=== PATIENT | female | born 1990 | race Caucasian/White ===

== ENCOUNTER 2016-07-02 05:57 | Emergency (ER) | payer OTHER ==
[2016-07-02 06:15] VITALS: RESP 16
[2016-07-02] MEDS ORDERED: SODIUM CHLORIDE 0.9% 1,000 ML IV STA (07:18)
[2016-07-02] MEDS ORDERED: SODIUM CHLORIDE 0.9% 500 ML IV STA (07:18)
[2016-07-02 07:37] LABS: Basophils % (A) 1 %; CHCM 34.4; Eosinophils # (A) 0.1 k/uL (0-0.7); Eosinophils % (A) 2 %; HCT 39.4 % (34.0-46.0); HDW 2.75; HGB 12.9 gm/dL (11.4-16.0); Luc # (Auto) 0.07; Luc % (Auto) 1; Lymphocytes # (A) 1.2 k/uL (1.0-4.8); Lymphocytes % (A) 20 %; MCH 28.7 pg (25.0-35.0); MCHC 32.7 g/dL (31.0-37.0); MCV 87.7 fL (80.0-100.0); Mean Platelet Volume 7.7; Monocytes # (A) 0.5 k/uL (0-1.0); Monocytes % (A) 8 %; Neutrophils # (A) 4.2 k/uL (1.3-7.7); Neutrophils % (A) 69 %; RBC 4.49 m/uL (3.80-5.40); RDW 12.7 % (11.5-15.5); WBC 6.1 k/uL (3.8-10.6); WBC (Perox) 6.21
--- NOTE | 2016-07-02 07:37 | ED ---
Syncope HPI - General Chief Complaint: Syncope Stated Complaint: Syncope/Fall/Seizure Time Seen by Provider: 07/02/16 07:05 Source: patient Mode of arrival: EMS Limitations: no limitations - History of Present Illness Initial Comments: Past about 4 AM today she woke up about the same time to check on her child on her way back to the bed she passed out. Her head than her boyfriend noticed that she had a seizure which didn't last quite as long he was less than a minute and then now she was bit disoriented wasn't quite with it took her about 15-20 minutes to get back to her baseline. Eyes any laceration or any neck pain from the fall no other injuries to the upper or lower extremities for the fall. She has no history of seizure disorder with what in the family. She does have a history of syncope last time was 4 years ago then Neurontin] she had other episodes of syncope as well. She feels tired now mild headache no neck pain no chest pain no neck stiffness no shortness of breath no abdominal pain no frequency urgency dysuria - Related Data Previous Rx's Medication Instructions Recorded Nitrofurantoin Monohyd/M-Cryst 100 mg PO Q12HR #14 cap 07/02/16 [Macrobid] Allergies Allergy/AdvReac Type Severity Reaction Status Date / Time No Known Allergies Allergy Verified 07/02/16 07:37 Review of Systems ROS Statement: Those systems with pertinent positive or pertinent negative responses have been documented in the HPI. ROS Other: All systems not noted in ROS Statement are negative. Past Medical History Past Medical History: No Reported History Additional Past Medical History / Comment(s): GALLBLADDER DISORDER, blackouts History of Any Multi-Drug Resistant Organisms: None Reported Past Surgical History: Section Additional Past Surgical History / Comment(s): brent removed, Past Anesthesia/Blood Transfusion Reactions: No Reported Reaction Past Psychological History: No Psychological Hx Reported Smoking Status: Never smoker Past Alcohol Use History: None Reported Past Drug Use History: None Reported - Past Family History Mother Family Medical History: No Reported History General Exam - General Exam Comments Initial Comments: General: The patient is awake and alert, in no distress, and does not appear acutely ill. Skin: Skin is warm and dry and no rashes or lesions are noted. Eye: Pupils are equal, round and reactive to light, extra-ocular movements are intact; there is normal conjunctiva bilaterally. Ears, nose, mouth and throat: There are moist mucous membranes and no oral lesions. Neck: The neck is supple, there is no tenderness or signs of meningitis Cardiovascular: There is a regular rate and rhythm. No murmur, rub or gallop is appreciated. Respiratory: To auscultation bilateral, no wheezing no rhonchi no distress respiratory gibson noticed Gastrointestinal: Soft, non-distended, non-tender abdomen without masses or organomegaly noted. There is no rebound or guarding present. Bowel sounds are unremarkable. Back: There is no tenderness to palpation in the midline. There is no obvious deformity. Musculoskeletal: Normal ROM, no tenderness, There is no pedal edema. There is no calf tenderness or swelling. No cords were appreciated. Neurological: CN II-XII intact, Cranial nerves III through XII are intact. There are no obvious motor or sensory deficits. Coordination appears grossly intact. Speech is normal. Psychiatric: Cooperative, appropriate mood & affect, normal judgment. Limitations: no limitations Course Vital Signs 07/02/16 07/02/16 06:12 07:28 Temperature 97.8 F Pulse Rate 18 L Pulse Rate [ 73 Sitting] Pulse Rate [ 89 Standing] Pulse Rate [ 66 Supine] Respiratory 16 Rate Blood Pressure 112/66 Blood Pressure 104/65 [Sitting] Blood Pressure 106/69 [Standing] Blood Pressure 96/57 [Supine] O2 Sat by Pulse 99 Oximetry Spoke to Debbie Torrez he agrees to see her next week as outpatient and he will arrange EEG in the meantime he is advised not to drive in the meantime EKG Findings - EKG Comments: EKG Findings:: R great is so 67 is normal sinus rhythm GA interval is 146 QRS duration is 82 QT/QTc is 394/416 review of this EKG does have some artifact and not mostly ambulates no ST elevation or ST depression noticed this EKG Medical Decision Making - Lab Data Result diagrams: 07/02/16 06:27 07/02/16 06:27 Lab Results 07/02/16 07/02/16 07/02/16 Range/Units 06:27 06:27 06:27 WBC 6.1 (3.8-10.6) k/uL RBC 4.49 (3.80-5.40) m/uL Hgb 12.9 (11.4-16.0) gm/dL Hct 39.4 (34.0-46.0) % MCV 87.7 (80.0-100.0) fL MCH 28.7 (25.0-35.0) pg MCHC 32.7 (31.0-37.0) g/dL RDW 12.7 (11.5-15.5) % Plt Count 244 (150-450) k/uL Neutrophils % 69 % Lymphocytes % 20 % Monocytes % 8 % Eosinophils % 2 % Basophils % 1 % Neutrophils # 4.2 (1.3-7.7) k/uL Lymphocytes # 1.2 (1.0-4.8) k/uL Monocytes # 0.5 (0-1.0) k/uL Eosinophils # 0.1 (0-0.7) k/uL Basophils # 0.0 (0-0.2) k/uL PT (9.0-12.0) sec INR (<1.1) APTT (22.0-30.0) sec Sodium 142 (137-145) mmol/L Potassium 4.0 (3.5-5.1) mmol/L Chloride 106 (98-107) mmol/L Carbon Dioxide 25 (22-30) mmol/L Anion Gap 11 mmol/L BUN 12 (7-17) mg/dL Creatinine 0.61 (0.52-1.04) mg/dL Est GFR (MDRD) Af Amer >60 (>60 ml/min/1.73 sqM) Est GFR (MDRD) Non-Af >60 (>60 ml/min/1.73 sqM) Glucose 82 (74-99) mg/dL Calcium 9.2 (8.4-10.2) mg/dL Total Bilirubin 0.6 (0.2-1.3) mg/dL AST 19 (14-36) U/L ALT 26 (9-52) U/L Alkaline Phosphatase 57 (38-126) U/L Total Creatine Kinase 96 (30-135) U/L CK-MB (CK-2) 0.7 (0.0-2.4) ng/mL CK-MB (CK-2) Rel Index 0.7 Troponin I <0.012 (0.000-0.034) ng/mL Total Protein 7.1 (6.3-8.2) g/dL Albumin 4.3 (3.5-5.0) g/dL Urine Color Urine Appearance (Clear) Urine pH (5.0-8.0) Ur Specific [place] (1.001-1.035) Urine Protein (Negative) Urine Glucose (UA) (Negative) Urine Ketones (Negative) Urine Blood (Negative) Urine Nitrate (Negative) Urine Bilirubin (Negative) Urine Urobilinogen (<2.0) mg/dL Ur Leukocyte Esterase (Negative) Urine RBC (0-5) /hpf Urine WBC (0-5) /hpf Ur Squamous Epith Cells (0-4) /hpf Urine Bacteria (None) /hpf Urine Mucus (None) /hpf Urine HCG, Qual (Not Detectd) 07/02/16 07/02/16 07/02/16 Range/Units 06:27 08:00 08:00 WBC (3.8-10.6) k/uL RBC (3.80-5.40) m/uL Hgb (11.4-16.0) gm/dL Hct (34.0-46.0) % MCV (80.0-100.0) fL MCH (25.0-35.0) pg MCHC (31.0-37.0) g/dL RDW (11.5-15.5) % Plt Count (150-450) k/uL Neutrophils % % Lymphocytes % % Monocytes % % Eosinophils % % Basophils % % Neutrophils # (1.3-7.7) k/uL Lymphocytes # (1.0-4.8) k/uL Monocytes # (0-1.0) k/uL Eosinophils # (0-0.7) k/uL Basophils # (0-0.2) k/uL PT 11.4 (9.0-12.0) sec INR 1.1 (<1.1) APTT 25.2 (22.0-30.0) sec Sodium (137-145) mmol/L Potassium (3.5-5.1) mmol/L Chloride (98-107) mmol/L Carbon Dioxide (22-30) mmol/L Anion Gap mmol/L BUN (7-17) mg/dL Creatinine (0.52-1.04) mg/dL Est GFR (MDRD) Af Amer (>60 ml/min/1.73 sqM) Est GFR (MDRD) Non-Af (>60 ml/min/1.73 sqM) Glucose (74-99) mg/dL Calcium (8.4-10.2) mg/dL Total Bilirubin (0.2-1.3) mg/dL AST (14-36) U/L ALT (9-52) U/L Alkaline Phosphatase (38-126) U/L Total Creatine Kinase (30-135) U/L CK-MB (CK-2) (0.0-2.4) ng/mL CK-MB (CK-2) Rel Index Troponin I (0.000-0.034) ng/mL Total Protein (6.3-8.2) g/dL Albumin (3.5-5.0) g/dL Urine Color Yellow Urine Appearance Cloudy H (Clear) Urine pH 6.5 (5.0-8.0) Ur Specific [place] 1.017 (1.001-1.035) Urine Protein Trace H (Negative) Urine Glucose (UA) Negative (Negative) Urine Ketones 1+ H (Negative) Urine Blood Negative (Negative) Urine Nitrate Negative (Negative) Urine Bilirubin Negative (Negative) Urine Urobilinogen <2.0 (<2.0) mg/dL Ur Leukocyte Esterase Moderate H (Negative) Urine RBC 1 (0-5) /hpf Urine WBC 20 H (0-5) /hpf Ur Squamous Epith Cells 6 H (0-4) /hpf Urine Bacteria Rare H (None) /hpf Urine Mucus Occasional H (None) /hpf Urine HCG, Qual Not Detected (Not Detectd) Disposition Clinical Impression: Syncope, Seizure disorder, Head injury, UTI (urinary tract infection) Disposition: HOME SELF-CARE Condition: Good Instructions: Epilepsy (ED) Prescriptions: Nitrofurantoin Monohyd/M-Cryst [Macrobid] 100 mg PO Q12HR #14 cap Referrals: None,Stated [Primary Care Provider] - 1-2 days Candis Vines MD [STAFF PHYSICIAN] - 1-2 days
[2016-07-02 07:45] LABS: ALT 26 U/L (9-52); AST 19 U/L (14-36); Alkaline Phosphatase 57 U/L (38-126); Anion Gap 11 mmol/L; Blood Urea Nitrogen 12 mg/dL (7-17); Calcium 9.2 mg/dL (8.4-10.2); Carbon Dioxide 25 mmol/L (22-30); Chloride 106 mmol/L (98-107); Glucose 82 mg/dL (74-99); Non-African American GFR(MDRD) >60 (>60 ml/min/1.73 sqM); Sodium 142 mmol/L (137-145); Total Bilirubin 0.6 mg/dL (0.2-1.3); Total Protein 7.1 g/dL (6.3-8.2)
[2016-07-02 08:00] LABS: Creatine Kinase 96 U/L (30-135)
[2016-07-02 08:03] LABS: INR 1.1 (<1.1); Partial Thromboplastin Time 25.2 sec (22.0-30.0); Prothrombin Time 11.4 sec (9.0-12.0)
[2016-07-02 08:12] LABS: Creatine Kinase MB 0.7 ng/mL (0.0-2.4); Troponin I <0.012 ng/mL (0.000-0.034)
[2016-07-02 08:29] LABS: Appearance,Urine Cloudy (Clear); Bacteria,Urine Rare /hpf; Bilirubin,Urine Negative (Negative); Glucose,Urine (UA) Negative (Negative); Ketones,Urine 1+ (Negative); Leukocyte Esterase,Urine Moderate (Negative); Mucus,Urine Occasional /hpf; Nitrite,Urine Negative (Negative); PH, Urine 6.5 (5.0-8.0); Particle Count 4467; Protein,Urine Trace (Negative); RBC,Urine 1 /hpf (0-5); Specific Gravity,Urine 1.017 (1.001-1.035); Squamous Epithelial Cell,Urine 6 /hpf (0-4); UA Billing (MACRO vs. MICRO) MICRO; Urobilinogen,Urine <2.0 mg/dL (<2.0); WBC,Urine 20 /hpf (0-5)
--- NOTE | 2016-07-02 09:06 | CT ---
EXAMINATION TYPE: CT brain wo con DATE OF EXAM: 07/02/2016 8:55 AM COMPARISON: NONE INDICATION: Syncope with seizure DLP: 943.80 mGycm, Automated exposure control for dose reduction was used. CONTRAST: None CT of the brain is performed utilizing 3 mm thick sections through the posterior fossa and 3 mm thick sections through the remaining calvarium. Study is performed within 24 hours of arrival to the hosp [facility]. No abnormal hyperdensity is present to suggest an acute intracranial hemorrhage. No mass lesion is evident. No acute infarcts are evident. Ventricles and sulci are appropriate for the patient age. Paranasal sinuses and mastoid air cells within the [id number] are clear. IMPRESSIONS: 1. Normal CT Brain
--- NOTE | 2016-07-02 09:22 | XR ---
EXAMINATION TYPE: XR chest 2V DATE OF EXAM: 07/02/2016 9:02 AM COMPARISON: NONE HISTORY: Seizure and syncope. TECHNIQUE: Frontal and lateral views of the chest are obtained. FINDINGS: There is no focal air space opacity, pleural effusion, or pneumothorax seen. The cardiac silhouette size is within normal limits. The osseous structures are intact. Cholecystectomy clips a re noted. IMPRESSION: No acute cardiopulmonary process.
[2016-07-02 10:14] VITALS: BP 97/58; PULSE 84; TEMP 98.4
== END 2016-07-02 10:02 | disposition home or self-care (01) ==
LOC: EC 05:57
DX: R55 Syncope and collapse (principal); R56.9 Unspecified convulsions; S09.90XA Unspecified injury of head, initial encounter; N39.0 Urinary tract infection, site not specified; W18.30XA Fall on same level, unspecified, initial encounter; Y92.009 Unspecified place in unspecified non-institutional (private) residence as the place of occurrence of the external cause
CPT/HCPCS: 36415; 70450; 71020; 80053; 81001; 81025; 82550; 82553; 84484; 85025; 85610; 85730; 93005; 96360; 96361; 99284

== ENCOUNTER 2018-04-09 09:26 | Emergency (ER) | payer OTHER ==
[2018-04-09 09:30] VITALS: RESP 18
[2018-04-09] MEDS ORDERED: SODIUM CHLORIDE 0.9% 500 ML 500 ML IV STA (09:36)
[2018-04-09] MEDS ORDERED: DIPH,PERTUS(ACELL)TETVAC-LF 0.5 ML VIAL IM ONE (09:45)
[2018-04-09] MEDS ORDERED: LIDOCAINE/EPINEPHR/TETRACAINE 5 ML BOTTLE TOPICAL ONE (09:47)
[2018-04-09] MEDS ORDERED: TOPICAL SKIN ADHESIVE 1 EACH AMP TOPICAL ONE (09:47)
[2018-04-09] MEDS ORDERED: SODIUM CHLORIDE 0.9% 1,000 ML IV ONE (09:48)
--- NOTE | 2018-04-09 09:48 | ED ---
Syncope HPI - General Chief Complaint: Syncope Stated Complaint: Syncope/facial injury Time Seen by Provider: 04/09/18 09:36 Source: patient, family, RN notes reviewed Mode of arrival: wheelchair Limitations: no limitations - History of Present Illness Initial Comments: This a 27-year-old female presents emergency Department chief complaint of syncope. Patient states that she had a syncopal episode while on the toilet this morning. Patient states she has not felt well all might she's been having extreme nausea. Patient states that she felt very lightheaded, flushed feeling and states that she passed out falling forward. Patient does have superficial laceration to her lip and nose. She is unsure when her last tetanus was. Patient went of headache, neck pain. Patient states she's been evaluated for these syncopal episodes in the past with no acute findings. Patient states that she's had MRIs, cardiology evaluation. Patient denies any chest pain, shortness breath, back pain, extremity injury. She states her father gave her some nausea medication which has helped. - Related Data Home Medications Medication Instructions Recorded Confirmed No Known Home Medications 04/09/18 04/09/18 Allergies Allergy/AdvReac Type Severity Reaction Status Date / Time No Known Allergies Allergy Verified 04/09/18 09:30 Review of Systems ROS Statement: Those systems with pertinent positive or pertinent negative responses have been documented in the HPI. ROS Other: All systems not noted in ROS Statement are negative. Past Medical History Past Medical History: No Reported History Additional Past Medical History / Comment(s): GALLBLADDER DISORDER, blackouts History of Any Multi-Drug Resistant Organisms: None Reported Past Surgical History: Section Additional Past Surgical History / Comment(s): brent removed, Past Anesthesia/Blood Transfusion Reactions: No Reported Reaction Past Psychological History: No Psychological Hx Reported Smoking Status: Never smoker Past Alcohol Use History: None Reported Past Drug Use History: None Reported - Past Family History Mother Family Medical History: No Reported History General Exam Limitations: no limitations General appearance: alert, in no apparent distress Head exam: Present: atraumatic, normocephalic, normal inspection Eye exam: Present: normal appearance, PERRL, EOMI. Absent: scleral icterus, conjunctival injection, periorbital swelling ENT exam: Present: mucous membranes moist. Absent: normal exam (Superficial abrasion noted to the nasal bridge, irregular 1 semi-laceration to the upper lip region above the vermilion border) Neck exam: Present: normal inspection, tenderness. Absent: meningismus, full ROM (Patient in c-collar), lymphadenopathy Respiratory exam: Present: normal lung sounds bilaterally. Absent: respiratory distress, wheezes, rales, rhonchi, stridor Cardiovascular Exam: Present: regular rate, normal rhythm, normal heart sounds. Absent: systolic murmur, diastolic murmur, rubs, gallop, clicks Extremities exam: Present: normal inspection, full ROM, normal capillary refill. Absent: tenderness, pedal edema, joint swelling, calf tenderness Neurological exam: Present: alert, oriented X3, CN II-XII intact, reflexes normal. Absent: motor sensory deficit Course Vital Signs 04/09/18 09:27 Temperature 98.3 F Pulse Rate 79 Respiratory 18 Rate Blood Pressure 104/67 O2 Sat by Pulse 98 Oximetry EKG Findings - EKG Comments: EKG Findings:: EKG performed at 10:15 normal sinus rhythm with rate of 87 MS 1: 30 QRS 76 QT/QTC 358/4:30 Procedures - Procedures Initial comment: 1 cm lip laceration was cleaned with normal saline let solution applied prior to closure with exofin topical adhesive. Patient tolerated well no complications Medical Decision Making - Medical Decision Making 27-year-old female presents emergency from for syncopal episode. Patient has had syncopal episodes in the past consistent with this. Patient is found to be dehydrated secondary to her ongoing nausea that developed overnight. Patient was hydrated, she feels improved. Patient did have lab work, CT, EKG all unremarkable. Return parameters discussed. Patient's laceration was closed. - Lab Data Result diagrams: 04/09/18 10:08 04/09/18 10:08 Lab Results 04/09/18 04/09/18 04/09/18 Range/Units 09:52 09:52 10:08 WBC 7.4 (3.8-10.6) k/uL RBC 4.76 (3.80-5.40) m/uL Hgb 14.0 (11.4-16.0) gm/dL Hct 42.3 (34.0-46.0) % MCV 88.9 (80.0-100.0) fL MCH 29.4 (25.0-35.0) pg MCHC 33.1 (31.0-37.0) g/dL RDW 12.7 (11.5-15.5) % Plt Count 226 (150-450) k/uL Neutrophils % 87 % Lymphocytes % 6 % Monocytes % 5 % Eosinophils % 1 % Basophils % 0 % Neutrophils # 6.4 (1.3-7.7) k/uL Lymphocytes # 0.4 L (1.0-4.8) k/uL Monocytes # 0.4 (0-1.0) k/uL Eosinophils # 0.1 (0-0.7) k/uL Basophils # 0.0 (0-0.2) k/uL Sodium (137-145) mmol/L Potassium (3.5-5.1) mmol/L Chloride (98-107) mmol/L Carbon Dioxide (22-30) mmol/L Anion Gap mmol/L BUN (7-17) mg/dL Creatinine (0.52-1.04) mg/dL Est GFR (CKD-EPI)AfAm (>60 ml/min/1.73 sqM) Est GFR (CKD-EPI)NonAf (>60 ml/min/1.73 sqM) Glucose (74-99) mg/dL Calcium (8.4-10.2) mg/dL Magnesium (1.6-2.3) mg/dL Total Bilirubin (0.2-1.3) mg/dL AST (14-36) U/L ALT (9-52) U/L Alkaline Phosphatase (38-126) U/L Troponin I (0.000-0.034) ng/mL Total Protein (6.3-8.2) g/dL Albumin (3.5-5.0) g/dL Urine Color Yellow Urine Appearance Cloudy H (Clear) Urine pH 6.5 (5.0-8.0) Ur Specific [place] 1.020 (1.001-1.035) Urine Protein 1+ H (Negative) Urine Glucose (UA) Negative (Negative) Urine Ketones 3+ H (Negative) Urine Blood Negative (Negative) Urine Nitrite Negative (Negative) Urine Bilirubin Negative (Negative) Urine Urobilinogen 2.0 (<2.0) mg/dL Ur Leukocyte Esterase Negative (Negative) Urine RBC 1 (0-5) /hpf Urine WBC 3 (0-5) /hpf Ur Squamous Epith Cells 25 H (0-4) /hpf Urine Bacteria Occasional H (None) /hpf Urine Mucus Many H (None) /hpf Urine HCG, Qual Not Detected (Not Detectd) 04/09/18 04/09/18 Range/Units 10:08 10:08 WBC (3.8-10.6) k/uL RBC (3.80-5.40) m/uL Hgb (11.4-16.0) gm/dL Hct (34.0-46.0) % MCV (80.0-100.0) fL MCH (25.0-35.0) pg MCHC (31.0-37.0) g/dL RDW (11.5-15.5) % Plt Count (150-450) k/uL Neutrophils % % Lymphocytes % % Monocytes % % Eosinophils % % Basophils % % Neutrophils # (1.3-7.7) k/uL Lymphocytes # (1.0-4.8) k/uL Monocytes # (0-1.0) k/uL Eosinophils # (0-0.7) k/uL Basophils # (0-0.2) k/uL Sodium 140 (137-145) mmol/L Potassium 4.1 (3.5-5.1) mmol/L Chloride 105 (98-107) mmol/L Carbon Dioxide 26 (22-30) mmol/L Anion Gap 9 mmol/L BUN 13 (7-17) mg/dL Creatinine 0.58 (0.52-1.04) mg/dL Est GFR (CKD-EPI)AfAm >90 (>60 ml/min/1.73 sqM) Est GFR (CKD-EPI)NonAf >90 (>60 ml/min/1.73 sqM) Glucose 102 H (74-99) mg/dL Calcium 8.9 (8.4-10.2) mg/dL Magnesium 1.8 (1.6-2.3) mg/dL Total Bilirubin 1.0 (0.2-1.3) mg/dL AST 25 (14-36) U/L ALT 21 (9-52) U/L Alkaline Phosphatase 45 (38-126) U/L Troponin I <0.012 (0.000-0.034) ng/mL Total Protein 7.0 (6.3-8.2) g/dL Albumin 4.2 (3.5-5.0) g/dL Urine Color Urine Appearance (Clear) Urine pH (5.0-8.0) Ur Specific [place] (1.001-1.035) Urine Protein (Negative) Urine Glucose (UA) (Negative) Urine Ketones (Negative) Urine Blood (Negative) Urine Nitrite (Negative) Urine Bilirubin (Negative) Urine Urobilinogen (<2.0) mg/dL Ur Leukocyte Esterase (Negative) Urine RBC (0-5) /hpf Urine WBC (0-5) /hpf Ur Squamous Epith Cells (0-4) /hpf Urine Bacteria (None) /hpf Urine Mucus (None) /hpf Urine HCG, Qual (Not Detectd) Disposition Clinical Impression: Vasovagal syncope, Dehydration, Facial laceration Disposition: HOME SELF-CARE Condition: Stable Instructions: Syncope (ED) Additional Instructions: Please return to the Emergency Department if symptoms worsen or any other concerns. Is patient prescribed a controlled substance at d/c from ED?: No Referrals: None,Stated [Primary Care Provider] - 1-2 days Time of Disposition: 11:00
[2018-04-09 10:16] LABS: Appearance,Urine Cloudy (Clear); Bacteria,Urine Occasional /hpf; Bilirubin,Urine Negative (Negative); Blood,Urine Negative (Negative); Color,Urine Yellow; Glucose,Urine (UA) Negative (Negative); Ketones,Urine 3+ (Negative); Leukocyte Esterase,Urine Negative (Negative); Mucus,Urine Many /hpf; Nitrite,Urine Negative (Negative); PH, Urine 6.5 (5.0-8.0); Protein,Urine 1+ (Negative); RBC,Urine 1 /hpf (0-5); Squamous Epithelial Cell,Urine 25 /hpf (0-4); WBC,Urine 3 /hpf (0-5)
[2018-04-09 10:18] LABS: Basophils % (A) 0 %; Eosinophils # (A) 0.1 k/uL (0-0.7); Eosinophils % (A) 1 %; HCT 42.3 % (34.0-46.0); Lymphocytes # (A) 0.4 k/uL (1.0-4.8); Lymphocytes % (A) 6 %; MCH 29.4 pg (25.0-35.0); MCHC 33.1 g/dL (31.0-37.0); MCV 88.9 fL (80.0-100.0); Mean Platelet Volume 6.2; Monocytes # (A) 0.4 k/uL (0-1.0); Monocytes % (A) 5 %; Neutrophils # (A) 6.4 k/uL (1.3-7.7); Neutrophils % (A) 87 %; Platelet Count 226 k/uL (150-450); RBC 4.76 m/uL (3.80-5.40); RDW 12.7 % (11.5-15.5); WBC 7.4 k/uL (3.8-10.6)
[2018-04-09 10:28] LABS: ALT 21 U/L (9-52); AST 25 U/L (14-36); Albumin 4.2 g/dL (3.5-5.0); Alkaline Phosphatase 45 U/L (38-126); Anion Gap 9 mmol/L; Blood Urea Nitrogen 13 mg/dL (7-17); Calcium 8.9 mg/dL (8.4-10.2); Carbon Dioxide 26 mmol/L (22-30); Chloride 105 mmol/L (98-107); Glucose 102 mg/dL (74-99); Magnesium 1.8 mg/dL (1.6-2.3); Potassium 4.1 mmol/L (3.5-5.1); Sodium 140 mmol/L (137-145)
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
[2018-04-09] MEDS ORDERED: ONDANSETRON 4 MG/2 ML VIAL IVP STA (11:19)
[2018-04-09] MEDS ORDERED: ONDANSETRON ODT 4 MG TAB PO STA (11:19)
[2018-04-09 11:25] VITALS: BP 108/64; PULSE 88; TEMP 98.1
== END 2018-04-09 11:35 | disposition home or self-care (01) ==
LOC: EC 09:26
DX: S01.511A Laceration without foreign body of lip, initial encounter (principal); E86.0 Dehydration; R55 Syncope and collapse; Z23 Encounter for immunization; W19.XXXA Unspecified fall, initial encounter
CPT/HCPCS: 99284 ×2; 96374 ×2; 96361 ×2; 90471 ×2; 12011 ×2; 36415; 93005; 80053; 83735; 84484; 85025; 81001; 81025; 72125; 70450; 90715; J2405

== ENCOUNTER 2018-11-13 21:36 | Emergency (ER) | payer OTHER ==
[2018-11-13 22:18] VITALS: BP 149/73; PULSE 76; RESP 18; TEMP 98.5
--- NOTE | 2018-11-13 23:40 | XR ---
EXAM: XR Thoracic Spine, 2 Views CLINICAL HISTORY: ITS.REASON XR Reason: Pain TECHNIQUE: Frontal and lateral views of the thoracic spine. COMPARISON: No relevant prior studies available. FINDINGS: Vertebrae: Unremarkable. No acute fracture. Normal alignment. Disc spaces: No significant narrowing. Soft tissues: Unremarkable. IMPRESSION: No acute osseous findings.
--- NOTE | 2018-11-13 23:40 | XR ---
EXAM: XR Lumbar Spine, 2 or 3 Views CLINICAL HISTORY: ITS.REASON XR Reason: Pain TECHNIQUE: Frontal and lateral views of the lumbar spine. COMPARISON: No relevant prior studies available. FINDINGS: Vertebrae: Unremarkable. No acute fracture. Normal alignment. Disc spaces: No significant narrowing. Soft tissues: Cholecystectomy clips. IMPRESSION: No acute findings.
--- NOTE | 2018-11-13 23:53 | XR ---
EXAM: XR Sacrum and Coccyx, 2 or more Views CLINICAL HISTORY: ITS.REASON XR Reason: Pain TECHNIQUE: Frontal and lateral views of the sacrum and coccyx. COMPARISON: No relevant prior studies available. FINDINGS: Sacrum/coccyx: Unremarkable. No acute fracture. Vertebrae: Visualized lumbar vertebrae are unremarkable. Soft tissues: IUD is in the pelvis. IMPRESSION: Normal sacrum and coccyx x-rays.
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
== END 2018-11-14 00:23 | disposition home or self-care (01) ==
LOC: EC 21:36
DX: M54.6 Pain in thoracic spine (principal); M53.3 Sacrococcygeal disorders, not elsewhere classified; S80.12XA Contusion of left lower leg, initial encounter; Y04.8XXA Assault by other bodily force, initial encounter
CPT/HCPCS: 72072; 72100; 72220; 81025; 99283

== ENCOUNTER 2019-09-28 17:55 | Emergency (ER) | payer OTHER ==
[2019-09-28 18:12] VITALS: BP 115/76; PULSE 86; RESP 18; TEMP 97.9
--- NOTE | 2019-09-28 18:41 | XR ---
EXAMINATION TYPE: XR hand complete LT DATE OF EXAM: 09/28/2019 CLINICAL HISTORY: Pain of the third left metacarpal phalangeal joint after injury. TECHNIQUE: Frontal, lateral and oblique images of the left hand are obtained. COMPARISON: None. FINDINGS: There is no acute fracture/dislocation evident in the left hand. The joint spaces in the l eft hand appear within normal limits. The overlying soft tissue appears unremarkable. IMPRESSION: There is no acute fracture or dislocation in the left hand.
--- NOTE | 2019-09-28 19:02 | ED ---
Upper Extremity HPI - General Chief Complaint: Extremity Injury, Upper Stated Complaint: Hand injury Time Seen by Provider: 09/28/19 18:22 Source: patient Mode of arrival: ambulatory Limitations: no limitations - History of Present Illness Initial Comments: Patient is a 29-year-old female presenting to the emergency Department with complaints of left hand pain. Patient states she accidentally shut her left hand and her door today. She reports pain over the third MCP joint. She does have some mild bruising to the area. She denies any other pain or complaints at this time. Upon arrival to the ER her vitals are stable. - Related Data Home Medications Medication Instructions Recorded Confirmed No Known Home Medications 04/09/18 11/13/18 Allergies Allergy/AdvReac Type Severity Reaction Status Date / Time No Known Allergies Allergy Verified 09/28/19 18:12 Review of Systems ROS Statement: Those systems with pertinent positive or pertinent negative responses have been documented in the HPI. ROS Other: All systems not noted in ROS Statement are negative. Past Medical History Past Medical History: No Reported History Additional Past Medical History / Comment(s): GALLBLADDER DISORDER, blackouts History of Any Multi-Drug Resistant Organisms: None Reported Past Surgical History: Section, Cholecystectomy Additional Past Surgical History / Comment(s): brent removed, Past Anesthesia/Blood Transfusion Reactions: No Reported Reaction Past Psychological History: No Psychological Hx Reported Smoking Status: Never smoker Past Alcohol Use History: None Reported Past Drug Use History: None Reported - Past Family History Mother Family Medical History: No Reported History General Exam - General Exam Comments Initial Comments: GENERAL: Well-appearing, well-nourished and in no acute distress. HEAD: Atraumatic, normocephalic. EYES: Pupils equal round and reactive to light, extraocular movements intact, sclera anicteric, conjunctiva are normal. ENT: Moist mucous membranes. NECK: Normal range of motion, supple without lymphadenopathy or JVD. LUNGS: Breath sounds clear to auscultation bilaterally and equal. No wheezes rales or rhonchi. HEART: Regular rate and rhythm without murmurs, rubs or gallops. ABDOMEN: Soft, nontender, normoactive bowel sounds. No guarding, no rebound. No masses appreciated. : Deferred EXTREMITIES: The patient has pain with palpation over the third MCP joint. There is some mild bruising to the area. Patient has full range of motion of her left hand and all fingers. She is neurovascular intact. No clubbing or cyanosis. NEUROLOGICAL: Normal speech, normal gait. PSYCH: Normal mood, normal affect. SKIN: Warm, Dry, normal turgor, no rashes or lesions noted. Limitations: no limitations Course Vital Signs 09/28/19 18:09 Temperature 97.9 F Pulse Rate 86 Respiratory 18 Rate Blood Pressure 115/76 O2 Sat by Pulse 100 Oximetry Medical Decision Making - Medical Decision Making Patient is a 29-year-old female here with left hand pain. X-rays revealed no acute fractures/dislocations. I discussed with patient this is most likely a contusion. She can use ice and Motrin as needed for pain. She is stable for discharge and she is in agreement with this plan of care. Patient can follow up with her PCP if symptoms persist. Disposition Clinical Impression: Contusion of left hand Disposition: HOME SELF-CARE Condition: Stable Instructions (If sedation given, give patient instructions): Contusion in Adults (ED) Additional Instructions: Please return to the Emergency Department if symptoms worsen or any other concerns. May apply ice to the area as well as Motrin for pain. Follow-up with PCP if symptoms persist over 1 week. Is patient prescribed a controlled substance at d/c from ED?: No Referrals: None,Stated [Primary Care Provider] - 1-2 days
== END 2019-09-28 19:11 | disposition home or self-care (01) ==
LOC: EC 17:55
DX: S60.222A Contusion of left hand, initial encounter (principal); W22.8XXA Striking against or struck by other objects, initial encounter
CPT/HCPCS: 99283

== ENCOUNTER 2019-10-17 04:23 | Emergency (ER) | payer OTHER ==
[2019-10-17 04:29] VITALS: BP 103/71; PULSE 99; RESP 20; TEMP 98
[2019-10-17] MEDS ORDERED: PANTOPRAZOLE 40 MG/10 ML VIAL IVP STA (04:41)
[2019-10-17] MEDS ORDERED: SODIUM CHLORIDE 0.9% 500 ML 500 ML IV STA (04:41)
[2019-10-17] MEDS ORDERED: SODIUM CHLORIDE 0.9% 1,000 ML IV STA ×2 (04:41)
[2019-10-17] MEDS ORDERED: ONDANSETRON 4 MG/2 ML VIAL IVP STA ×2 (04:41)
[2019-10-17] MEDS: SODIUM CHLORIDE 0.9% 1,000 ML IV ONE ×2 (04:42→04:44)
--- NOTE | 2019-10-17 04:42 | ED ---
Nausea/Vomiting/Diarrhea HPI - General Chief complaint: Nausea/Vomiting/Diarrhea Stated complaint: vomiting Time Seen by Provider: 10/17/19 04:41 Source: patient, family, RN notes reviewed, old records reviewed Mode of arrival: ambulatory Limitations: no limitations - History of Present Illness Initial comments: This is a 29-year-old female DF for evaluation of persistent nausea vomiting patient has significant nausea vomiting without diarrhea no abdominal pain. Patient has recent history of drinking, patient was drinking yesterday at length. She has recent travel history no fevers. Patient states she drove home after drinking was unable to sleep had persistent nausea vomiting and is actively vomiting here in the ER MD complaint: nausea, vomiting -: hour(s) Description of Vomiting: food contents, watery, bilious Radiation: none Consistency: constant Improves with: none Worsens with: none Context: alcohol abuse Associated Symptoms: denies other symptoms - Related Data Home Medications Medication Instructions Recorded Confirmed No Known Home Medications 04/09/18 11/13/18 Allergies Allergy/AdvReac Type Severity Reaction Status Date / Time No Known Allergies Allergy Verified 10/17/19 04:28 Review of Systems ROS Statement: Those systems with pertinent positive or pertinent negative responses have been documented in the HPI. ROS Other: All systems not noted in ROS Statement are negative. Past Medical History Past Medical History: No Reported History Additional Past Medical History / Comment(s): GALLBLADDER DISORDER, blackouts History of Any Multi-Drug Resistant Organisms: None Reported Past Surgical History: Section, Cholecystectomy Additional Past Surgical History / Comment(s): brent removed, Past Anesthesia/Blood Transfusion Reactions: No Reported Reaction Past Psychological History: No Psychological Hx Reported Smoking Status: Never smoker Past Alcohol Use History: Occasional Past Drug Use History: None Reported - Past Family History Mother Family Medical History: No Reported History General Exam Limitations: no limitations General appearance: alert, in no apparent distress Head exam: Present: atraumatic, normocephalic, normal inspection Eye exam: Present: normal appearance, PERRL, EOMI. Absent: scleral icterus, conjunctival injection, periorbital swelling ENT exam: Present: normal exam, mucous membranes moist Neck exam: Present: normal inspection. Absent: tenderness, meningismus, lymphadenopathy Respiratory exam: Present: normal lung sounds bilaterally. Absent: respiratory distress, wheezes, rales, rhonchi, stridor Cardiovascular Exam: Present: regular rate, normal rhythm, normal heart sounds. Absent: systolic murmur, diastolic murmur, rubs, gallop, clicks GI/Abdominal exam: Present: soft, normal bowel sounds. Absent: distended, tenderness, guarding, rebound, rigid Extremities exam: Present: normal inspection, full ROM, normal capillary refill. Absent: tenderness, pedal edema, joint swelling, calf tenderness Back exam: Present: normal inspection Neurological exam: Present: alert, oriented X3, CN II-XII intact Psychiatric exam: Present: normal affect, normal mood Skin exam: Present: warm, dry, intact, normal color. Absent: rash Course Vital Signs 10/17/19 04:24 Temperature 98 F Pulse Rate 99 Respiratory 20 Rate Blood Pressure 103/71 O2 Sat by Pulse 100 Oximetry - Reevaluation(s) Reevaluation #1: 10/17/19 05:45 Medical record is reviewed in patient's vomiting has stopped Medical Decision Making - Medical Decision Making 29 female Anil with positive nausea vomiting. Symptoms much improved here in the ER patient can be discharged home - Lab Data Result diagrams: 10/17/19 04:10 10/17/19 04:10 Lab Results 10/17/19 10/17/19 Range/Units 04:10 04:10 WBC 10.8 H (3.8-10.6) k/uL RBC 4.59 (3.80-5.40) m/uL Hgb 14.0 (11.4-16.0) gm/dL Hct 41.6 (34.0-46.0) % MCV 90.5 (80.0-100.0) fL MCH 30.4 (25.0-35.0) pg MCHC 33.6 (31.0-37.0) g/dL RDW 12.9 (11.5-15.5) % Plt Count 248 (150-450) k/uL Neutrophils % 90 % Lymphocytes % 6 % Monocytes % 3 % Eosinophils % 1 % Basophils % 0 % Neutrophils # 9.7 H (1.3-7.7) k/uL Lymphocytes # 0.6 L (1.0-4.8) k/uL Monocytes # 0.3 (0-1.0) k/uL Eosinophils # 0.1 (0-0.7) k/uL Basophils # 0.0 (0-0.2) k/uL Sodium 139 (137-145) mmol/L Potassium 4.2 (3.5-5.1) mmol/L Chloride 104 (98-107) mmol/L Carbon Dioxide 20 L (22-30) mmol/L Anion Gap 15 mmol/L BUN 17 (7-17) mg/dL Creatinine 0.52 (0.52-1.04) mg/dL Est GFR (CKD-EPI)AfAm >90 (>60 ml/min/1.73 sqM) Est GFR (CKD-EPI)NonAf >90 (>60 ml/min/1.73 sqM) Glucose 95 (74-99) mg/dL Calcium 9.3 (8.4-10.2) mg/dL Phosphorus 3.2 (2.5-4.5) mg/dL Magnesium 1.8 (1.6-2.3) mg/dL Total Bilirubin 0.7 (0.2-1.3) mg/dL AST 44 H (14-36) U/L ALT 23 (4-34) U/L Alkaline Phosphatase 62 (38-126) U/L Total Protein 7.8 (6.3-8.2) g/dL Albumin 4.8 (3.5-5.0) g/dL Lipase 76 (23-300) U/L Serum Alcohol <10 mg/dL Disposition Clinical Impression: Dehydration, Nausea & vomiting Disposition: HOME SELF-CARE Condition: Good Instructions (If sedation given, give patient instructions): Acute Nausea and Vomiting (ED) Is patient prescribed a controlled substance at d/c from ED?: No Referrals: None,Stated [Primary Care Provider] - 1-2 days
[2019-10-17 04:58] LABS: Basophils % (A) 0 %; Eosinophils # (A) 0.1 k/uL (0-0.7); Eosinophils % (A) 1 %; HCT 41.6 % (34.0-46.0); Lymphocytes # (A) 0.6 k/uL (1.0-4.8); Lymphocytes % (A) 6 %; MCH 30.4 pg (25.0-35.0); MCHC 33.6 g/dL (31.0-37.0); MCV 90.5 fL (80.0-100.0); Mean Platelet Volume 6.9; Monocytes # (A) 0.3 k/uL (0-1.0); Monocytes % (A) 3 %; Neutrophils # (A) 9.7 k/uL (1.3-7.7); Neutrophils % (A) 90 %; Platelet Count 248 k/uL (150-450); RBC 4.59 m/uL (3.80-5.40); RDW 12.9 % (11.5-15.5); WBC 10.8 k/uL (3.8-10.6)
[2019-10-17 05:10] LABS: ALT 23 U/L (4-34); AST 44 U/L (14-36); African American GFR (CKD) >90 (>60 ml/min/1.73 sqM); Albumin 4.8 g/dL (3.5-5.0); Alcohol <10 mg/dL; Alkaline Phosphatase 62 U/L (38-126); Anion Gap 15 mmol/L; Blood Urea Nitrogen 17 mg/dL (7-17); Calcium 9.3 mg/dL (8.4-10.2); Carbon Dioxide 20 mmol/L (22-30); Chloride 104 mmol/L (98-107); Glucose 95 mg/dL (74-99); Magnesium 1.8 mg/dL (1.6-2.3); Non-African American GFR(CKD) >90 (>60 ml/min/1.73 sqM); Phosphorus 3.2 mg/dL (2.5-4.5); Potassium 4.2 mmol/L (3.5-5.1); Sodium 139 mmol/L (137-145); Total Bilirubin 0.7 mg/dL (0.2-1.3); Total Protein 7.8 g/dL (6.3-8.2)
[2019-10-17] MEDS ORDERED: ONDANSETRON 4 MG ODT STARTER PACK 2 TAB BTL PO STA (05:43)
== END 2019-10-17 06:03 | disposition home or self-care (01) ==
LOC: EC 04:23
DX: E86.0 Dehydration (principal); R11.2 Nausea with vomiting, unspecified
CPT/HCPCS: 36415; 80053; 83690; 83735; 84100; 85025; 80320; 99284; 96374; 96375; 96361; J2405; S0119; C9113

== ENCOUNTER 2019-11-28 21:06 | Emergency (ER) | payer OTHER ==
[2019-11-28 21:14] VITALS: BP 131/77; PULSE 74; RESP 18; TEMP 98.5
[2019-11-28] MEDS ORDERED: CEPHALEXIN 500MG STARTER PACK 4 CAP BTL PO STA (22:30)
--- NOTE | 2019-11-28 23:00 | XR ---
EXAMINATION TYPE: XR nasal bone DATE OF EXAM: 11/28/2019 COMPARISON: NONE HISTORY: Fall. Pain. TECHNIQUE: 3 views FINDINGS: Nasal bone appears intact. Maxillary spine is intact. There is no evidence of blowout fract ure. There is normal aeration of the maxillary sinuses. IMPRESSION: Normal nasal bone exam.
--- NOTE | 2019-11-28 23:10 | ED ---
ENT HPI - General Chief complaint: ENT Stated complaint: Fall yesterday, dental pain Time Seen by Provider: 11/28/19 21:25 Source: patient Mode of arrival: ambulatory Limitations: no limitations - History of Present Illness Initial comments: 29-year-old feel presenting today for chief complaint of nose pain. Patient states she fell on cement 2 days ago. Denies loss of consciousness denies headache nausea vomiting neck pain. Patient states her only complaint is a small abrasion over the bridge of the nose and some swelling. Patient was concerned that she had a nasal fracture. Patient states that she had her nose examined by a friend who recommended coming to the emergency department for further evaluation. Patient denies any nosebleeds, fevers. Denies additional complaints. Upon arrival patient appears well there is no signs of acute distress. - Related Data Previous Rx's Medication Instructions Recorded Cephalexin [Keflex] 500 mg PO Q6HR 3 Days #12 cap 11/28/19 Allergies Allergy/AdvReac Type Severity Reaction Status Date / Time No Known Allergies Allergy Verified 11/28/19 22:09 Review of Systems ROS Statement: Those systems with pertinent positive or pertinent negative responses have been documented in the HPI. ROS Other: All systems not noted in ROS Statement are negative. Past Medical History Past Medical History: No Reported History Additional Past Medical History / Comment(s): GALLBLADDER DISORDER, blackouts History of Any Multi-Drug Resistant Organisms: None Reported Past Surgical History: Section, Cholecystectomy Additional Past Surgical History / Comment(s): brent removed, Past Anesthesia/Blood Transfusion Reactions: No Reported Reaction Past Psychological History: No Psychological Hx Reported Smoking Status: Never smoker Past Alcohol Use History: Occasional Past Drug Use History: None Reported - Past Family History Mother Family Medical History: No Reported History General Exam - General Exam Comments Initial Comments: General: The patient is awake and alert, in no distress Eye: +3 mm pupils are equal, round and reactive to light, extra-ocular movements are intact. No nystagmus. There is normal conjunctiva bilaterally. No signs of icterus. Ears, nose, mouth and throat: There are moist mucous membranes and no oral lesions. Nasal bridge abrasion, no large laceration. No septal hematoma. No septal deviation appreciated. No active epistaxis. Patient has no gross deviation of nasal bone alighnment. Neck: The neck is supple, there is no tenderness or JVD. Musculoskeletal: Normal ROM, no tenderness. Strength 5/5. Sensation intact. Pulses equal bilaterally 2+. Neurological: A&O x 3. CN II-XII intact grossly, There are no obvious motor or sensory deficits. Coordination appears grossly intact. Speech is normal. Skin: Skin is warm and dry and no rashes or lesions are noted. Psychiatric: Cooperative, appropriate mood & affect, normal judgment. Limitations: no limitations Course Vital Signs 11/28/19 21:12 Temperature 98.5 F Pulse Rate 74 Respiratory 18 Rate Blood Pressure 131/77 O2 Sat by Pulse 97 Oximetry Medical Decision Making - Medical Decision Making 29yo presenting for nose pain agter fall. XR (-). No exam findings consistent with displaced fracture. No headache or neurologic complaints.. Patient has small abrasion. Prescribed antibiotics as she is concerned area is becoming red/irriated from mask running over abrasion site. No signs of obvious infection at this time. Patient agreeable to f/u with ENT and return for fevers, increased redness at abrasion site. Patient discharged appearing well. Discussed case with Dr. Verdugo Disposition Clinical Impression: Fall, Nasal pain Disposition: HOME SELF-CARE Condition: Good Additional Instructions: Please use medication as discussed. Please follow-up with family doctor in the next 2 days, ent for persistent symptoms. Please return to emergency room if the symptoms increase or worsen or for any other concerns. Prescriptions: Cephalexin [Keflex] 500 mg PO Q6HR 3 Days #12 cap Is patient prescribed a controlled substance at d/c from ED?: No Referrals: None,Stated [Primary Care Provider] - 1-2 days Mahin Gonzalez DO [Doctor of Osteopathic Medicine] - 1-2 days Time of Disposition: 23:10
== END 2019-11-28 23:14 | disposition home or self-care (01) ==
LOC: EC 21:06
DX: J34.89 Other specified disorders of nose and nasal sinuses (principal); S00.31XA Abrasion of nose, initial encounter; W19.XXXA Unspecified fall, initial encounter
CPT/HCPCS: 70160; 99283

== ENCOUNTER 2020-04-03 06:28 | Emergency (ER) | payer OTHER ==
[2020-04-03] MEDS ORDERED: SODIUM CHLORIDE 0.9% 1,000 ML IV ONE (06:41)
[2020-04-03] MEDS ORDERED: PIPERACILLIN-TAZOBACTAM 3.375 GM in SODIUM CHLORIDE 0.9% 100 ML IVPB STA (06:42)
[2020-04-03] MEDS ORDERED: SODIUM CHLORIDE 0.9% 1,000 ML IV SCH (06:45)
[2020-04-03] MEDS ORDERED: SODIUM CHLORIDE 0.9% 500 ML 500 ML IV ONE (06:49)
[2020-04-03] MEDS ORDERED: ACETAMINOPHEN TAB 325 MG TAB PO STA (06:49)
--- NOTE | 2020-04-03 07:27 | ED ---
Abdominal Pain HPI - General Chief Complaint: Abdominal Pain Stated Complaint: Abdominal Pain Time Seen by Provider: 04/03/20 06:40 Source: patient Mode of arrival: ambulatory Limitations: no limitations - History of Present Illness Initial Comments: 27yo female with history of mirena IUD x5 years presenting to the ER for increased vaginal discharge, pelvic pain midline. Denies urinary symptoms, pain with sex .States last night she began to feel warm and noted fever. Patient denies diarrhea, vomiting. Patient denies upper abdominal pain, RLQ pain. Ned alcazar denies noting symptoms prior to yesterday. Patient is monogamous in a relationship. She states she is not overtly concern for sexual transmitted diseases. Patient was concerned of infection of IUD gvien location of pain. Patient febrile on arrival. She is in good spirits does not appear toxic. BP on lower aspect of normal. Pt states it runs low - Related Data Previous Rx's Medication Instructions Recorded Doxycycline [Vibramycin] 100 mg PO BID 14 Days #28 capsule 04/03/20 Allergies Allergy/AdvReac Type Severity Reaction Status Date / Time No Known Allergies Allergy Verified 04/03/20 09:20 Review of Systems ROS Statement: Those systems with pertinent positive or pertinent negative responses have been documented in the HPI. ROS Other: All systems not noted in ROS Statement are negative. Past Medical History Past Medical History: No Reported History Additional Past Medical History / Comment(s): GALLBLADDER DISORDER, blackouts History of Any Multi-Drug Resistant Organisms: None Reported Past Surgical History: Section, Cholecystectomy Additional Past Surgical History / Comment(s): brent removed, Past Anesthesia/Blood Transfusion Reactions: No Reported Reaction Past Psychological History: No Psychological Hx Reported Smoking Status: Never smoker Past Alcohol Use History: Occasional Past Drug Use History: Marijuana - Past Family History Mother Family Medical History: No Reported History General Exam - General Exam Comments Initial Comments: General: The patient is awake and alert, in no distress Eye: Pupils are equal, round and reactive to light, extra-ocular movements are intact. No nystagmus. There is normal conjunctiva bilaterally. No signs of icterus. Ears, nose, mouth and throat: There are moist mucous membranes and no oral lesions. Neck: The neck is supple, there is no tenderness or JVD. Cardiovascular: There is a regular rate and rhythm. No murmur, rub or gallop is appreciated. Respiratory: Lungs are clear to auscultation, respirations are non-labored, breath sounds are equal. No wheezes, stridor, rales, or rhonchi. Gastrointestinal: Soft, non-distended, mildline lower pelvic pain to palpation, abdomen without masses or organomegaly noted. There is no rebound or guarding present. : significant amount of purulent discharge on exa, coming from os with cervical motion tenderness. no odors. Musculoskeletal: Normal ROM, no tenderness. Strength 5/5. Sensation intact. Radial pulses equal bilaterally 2+. Neurological: A&O x 3. CN II-XII intact grossly, There are no obvious motor or sensory deficits. Coordination appears grossly intact. Speech is normal. Skin: Skin is warm and dry and no rashes or lesions are noted. Psychiatric: Cooperative, appropriate mood & affect, normal judgment. Limitations: no limitations Course Vital Signs 04/03/20 04/03/20 04/03/20 06:32 08:33 11:23 Temperature 101.1 F H 98.7 F Pulse Rate 84 92 78 Respiratory 20 18 12 Rate Blood Pressure 93/60 108/77 90/60 O2 Sat by Pulse 98 100 98 Oximetry Medical Decision Making - Medical Decision Making Leukocytosis. VS improved. Patient given IV abx. US no abscess, Cyst noted. Patient has cervical motion tenderness, lower pelvic cramping. After US, IUD removed. Minimal bleeding. Patient tolerated well. Patient requesting discharge. return parameters and importance of outpatient antibiotics discussed. Discussed case with Dr. Montgomery who was agreeable to discharge and care plan- he personally reviewed US report. - Lab Data Result diagrams: 04/03/20 07:04 04/03/20 07:04 Lab Results 04/03/20 04/03/20 04/03/20 Range/Units 07:04 07:04 07:04 WBC 13.4 H (3.8-10.6) k/uL RBC 4.37 (3.80-5.40) m/uL Hgb 13.3 (11.4-16.0) gm/dL Hct 38.8 (34.0-46.0) % MCV 88.6 (80.0-100.0) fL MCH 30.5 (25.0-35.0) pg MCHC 34.4 (31.0-37.0) g/dL RDW 12.4 (11.5-15.5) % Plt Count 262 (150-450) k/uL MPV 7.0 Neutrophils % 85 % Lymphocytes % 8 % Monocytes % 5 % Eosinophils % 1 % Basophils % 1 % Neutrophils # 11.4 H (1.3-7.7) k/uL Lymphocytes # 1.1 (1.0-4.8) k/uL Monocytes # 0.7 (0-1.0) k/uL Eosinophils # 0.1 (0-0.7) k/uL Basophils # 0.1 (0-0.2) k/uL Sodium (137-145) mmol/L Potassium (3.5-5.1) mmol/L Chloride (98-107) mmol/L Carbon Dioxide (22-30) mmol/L Anion Gap mmol/L BUN (7-17) mg/dL Creatinine (0.52-1.04) mg/dL Est GFR (CKD-EPI)AfAm (>60 ml/min/1.73 sqM) Est GFR (CKD-EPI)NonAf (>60 ml/min/1.73 sqM) Glucose (74-99) mg/dL Plasma Lactic Acid Andrea (0.7-2.0) mmol/L Calcium (8.4-10.2) mg/dL Total Bilirubin (0.2-1.3) mg/dL AST (14-36) U/L ALT (4-34) U/L Alkaline Phosphatase (38-126) U/L Total Protein (6.3-8.2) g/dL Albumin (3.5-5.0) g/dL Urine Color Yellow Urine Appearance Cloudy H (Clear) Urine pH 5.5 (5.0-8.0) Ur Specific [place] 1.020 (1.001-1.035) Urine Protein Trace H (Negative) Urine Glucose (UA) Negative (Negative) Urine Ketones 2+ H (Negative) Urine Blood Negative (Negative) Urine Nitrite Negative (Negative) Urine Bilirubin Negative (Negative) Urine Urobilinogen <2.0 (<2.0) mg/dL Ur Leukocyte Esterase Large H (Negative) Urine RBC 11 H (0-5) /hpf Urine WBC 75 H (0-5) /hpf Ur Squamous Epith Cells 18 H (0-4) /hpf Urine Mucus Many H (None) /hpf Urine HCG, Qual Not Detected (Not Detectd) Trichomonas Ag (Rapid) (Negative) 04/03/20 04/03/20 04/03/20 Range/Units 07:04 07:04 07:11 WBC (3.8-10.6) k/uL RBC (3.80-5.40) m/uL Hgb (11.4-16.0) gm/dL Hct (34.0-46.0) % MCV (80.0-100.0) fL MCH (25.0-35.0) pg MCHC (31.0-37.0) g/dL RDW (11.5-15.5) % Plt Count (150-450) k/uL MPV Neutrophils % % Lymphocytes % % Monocytes % % Eosinophils % % Basophils % % Neutrophils # (1.3-7.7) k/uL Lymphocytes # (1.0-4.8) k/uL Monocytes # (0-1.0) k/uL Eosinophils # (0-0.7) k/uL Basophils # (0-0.2) k/uL Sodium 136 L (137-145) mmol/L Potassium 4.2 (3.5-5.1) mmol/L Chloride 107 (98-107) mmol/L Carbon Dioxide 23 (22-30) mmol/L Anion Gap 6 mmol/L BUN 8 (7-17) mg/dL Creatinine 0.57 (0.52-1.04) mg/dL Est GFR (CKD-EPI)AfAm >90 (>60 ml/min/1.73 sqM) Est GFR (CKD-EPI)NonAf >90 (>60 ml/min/1.73 sqM) Glucose 106 H (74-99) mg/dL Plasma Lactic Acid Andrea 0.8 (0.7-2.0) mmol/L Calcium 8.6 (8.4-10.2) mg/dL Total Bilirubin 1.0 (0.2-1.3) mg/dL AST 24 (14-36) U/L ALT 10 (4-34) U/L Alkaline Phosphatase 66 (38-126) U/L Total Protein 6.8 (6.3-8.2) g/dL Albumin 4.0 (3.5-5.0) g/dL Urine Color Urine Appearance (Clear) Urine pH (5.0-8.0) Ur Specific [place] (1.001-1.035) Urine Protein (Negative) Urine Glucose (UA) (Negative) Urine Ketones (Negative) Urine Blood (Negative) Urine Nitrite (Negative) Urine Bilirubin (Negative) Urine Urobilinogen (<2.0) mg/dL Ur Leukocyte Esterase (Negative) Urine RBC (0-5) /hpf Urine WBC (0-5) /hpf Ur Squamous Epith Cells (0-4) /hpf Urine Mucus (None) /hpf Urine HCG, Qual (Not Detectd) Trichomonas Ag (Rapid) Negative (Negative) Disposition Clinical Impression: PID (acute pelvic inflammatory disease), Pelvic pain, Vaginal discharge Disposition: HOME SELF-CARE Condition: Good Instructions (If sedation given, give patient instructions): Pelvic Inflammatory Disease (ED) Additional Instructions: Please use medication as discussed. Please follow-up with OBGYN in next 2 days. Return for increasing pain, persistent fevers. Please return to emergency room if the symptoms increase or worsen or for any other concerns. Prescriptions: Doxycycline [Vibramycin] 100 mg PO BID 14 Days #28 capsule Is patient prescribed a controlled substance at d/c from ED?: No Referrals: Mauricio Emerson DO [Primary Care Provider] - 1-2 days Time of Disposition: 10:56
[2020-04-03 07:32] LABS: Basophils # (A) 0.1 k/uL (0-0.2); Basophils % (A) 1 %; Eosinophils # (A) 0.1 k/uL (0-0.7); Eosinophils % (A) 1 %; HCT 38.8 % (34.0-46.0); HGB 13.3 gm/dL (11.4-16.0); Lymphocytes # (A) 1.1 k/uL (1.0-4.8); Lymphocytes % (A) 8 %; MCH 30.5 pg (25.0-35.0); MCHC 34.4 g/dL (31.0-37.0); MCV 88.6 fL (80.0-100.0); Monocytes # (A) 0.7 k/uL (0-1.0); Monocytes % (A) 5 %; Neutrophils # (A) 11.4 k/uL (1.3-7.7); Neutrophils % (A) 85 %; Platelet Count 262 k/uL (150-450); RBC 4.37 m/uL (3.80-5.40); RDW 12.4 % (11.5-15.5); WBC 13.4 k/uL (3.8-10.6)
[2020-04-03 07:34] LABS: ALT 10 U/L (4-34); AST 24 U/L (14-36); African American GFR (CKD) >90 (>60 ml/min/1.73 sqM); Alkaline Phosphatase 66 U/L (38-126); Anion Gap 6 mmol/L; Blood Urea Nitrogen 8 mg/dL (7-17); Calcium 8.6 mg/dL (8.4-10.2); Carbon Dioxide 23 mmol/L (22-30); Chloride 107 mmol/L (98-107); Glucose 106 mg/dL (74-99); Non-African American GFR(CKD) >90 (>60 ml/min/1.73 sqM); Potassium 4.2 mmol/L (3.5-5.1); Sodium 136 mmol/L (137-145); Total Protein 6.8 g/dL (6.3-8.2)
[2020-04-03 07:39] LABS: Appearance,Urine Cloudy (Clear); Bilirubin,Urine Negative (Negative); Blood,Urine Negative (Negative); Color,Urine Yellow; Glucose,Urine (UA) Negative (Negative); Ketones,Urine 2+ (Negative); Leukocyte Esterase,Urine Large (Negative); Mucus,Urine Many /hpf; Nitrite,Urine Negative (Negative); PH, Urine 5.5 (5.0-8.0); Protein,Urine Trace (Negative); RBC,Urine 11 /hpf (0-5); Squamous Epithelial Cell,Urine 18 /hpf (0-4); Urobilinogen,Urine <2.0 mg/dL (<2.0); WBC,Urine 75 /hpf (0-5)
--- NOTE | 2020-04-03 08:14 | US ---
EXAMINATION TYPE: US transvaginal plus Doppler DATE OF EXAM: 04/03/2020 COMPARISON: NONE CLINICAL HISTORY: 39-year-old female lower abdominal pain. IUD placement 5 years ago, pelvic pain bruce t is worse on the left, fever TECHNIQUE: Transvaginal (TV). Color Doppler and spectral waveform analysis of the ovarian arteries and veins. Date of LMP: unknown FINDINGS: EXAM MEASUREMENTS: Uterus: 7.6 x 3.9 x 4.7 cm Endometrial Stripe: 0.3 cm Right Ovary: 3.8 x 2.3 x 2.7 cm Left Ovary: 3.8 x 2.5 x 4.0 cm 1. Uterus: Anteverted with nabothian cysts 2. Endometrium: IUD visualized body of uterus. It appears probably centered within the uterine cavit y. 3. Right Ovary: follicles noted 4. Left Ovary: Hypoechoic area with internal reticulations = 2.9 x 2.1 x 2.2cm Spectral, color and waveform doppler imaging shows good arterial and venous flow within the ovaries ; there is no evidence for ovarian torsion. 5. Bilateral Adnexa: increased vascularity bilateral adnexa 6. Posterior cul-de-sac: appears wnl IMPRESSION: 1. IUD appears to be appropriately situated along the uterine cavity. 2. Follicular change in both ovaries. In addition, there is a 2.9 cm lesion in the left ovary with in ternal reticulations, suspect a hemorrhagic cyst. Follow-up in 6-8 weeks to ensure involution. 3. Prominent bilateral adnexal vascularity may be physiologic. This can also be reassessed at follow- up. Pelvic congestion syndrome is also a consideration.
[2020-04-03] MEDS ORDERED: DOXYCYCLINE 100 MG in SODIUM CHLORIDE 0.9% 100 ML IVPB ONE (08:16)
[2020-04-03] MEDS ORDERED: MORPHINE SULFATE 4 MG/ML SYRINGE IVP STA (08:33)
[2020-04-03] MEDS ORDERED: ONDANSETRON 4 MG/2 ML VIAL IVP STA (08:33)
[2020-04-03 08:34] VITALS: TEMP 98.7
[2020-04-03] MEDS ORDERED: cefTRIAXone 250 MG VIAL IV STA (11:02)
[2020-04-03 11:27] VITALS: BP 90/60; PULSE 78; RESP 12
[2020-04-04 13:20] LABS: C. trachomatis,PCR Negative (Neg,Equiv); Chlamydia trachomatis Source Vagina; N. gonorrhoeae,PCR Negative (Neg,Equiv); Neisseria Source Vagina
== END 2020-04-03 11:38 | disposition home or self-care (01) ==
LOC: EC 06:28
DX: N73.0 Acute parametritis and pelvic cellulitis (principal); D72.829 Elevated white blood cell count, unspecified; Z90.49 Acquired absence of other specified parts of digestive tract
CPT/HCPCS: 36415; 80053; 83605; 85025; 81001; 81025; 87040; 87808; 87491; 87591; 87070; 87086; 93975; 76830; 99284; 96365; 96367; 96375 ×3; 96361; J2270; J2405; J0694; J0696

== ENCOUNTER 2020-06-21 18:43 | Emergency (ER) | payer OTHER ==
[2020-06-21 18:46] VITALS: RESP 18
[2020-06-21] MEDS ORDERED: SODIUM CHLORIDE 0.9% 1,000 ML IV ONE (19:16)
--- NOTE | 2020-06-21 19:19 | ED ---
General Adult HPI - General Chief complaint: Vaginal Bleeding Stated complaint: 10wks preg, bleeding Time Seen by Provider: 06/21/20 19:00 Source: patient Mode of arrival: ambulatory Limitations: no limitations - History of Present Illness Initial comments: 30-year-old female patient presents to the emergency department today for evaluation of vaginal bleeding. Patient states she is 10 weeks , . States that she did have her 10 week visit yesterday, had a normal ultrasound. States today she started to have bright red vaginal bleeding. Started 20-30 minutes prior to arrival. She has not had a pad. She denies any abdominal cramping or pain. Denies any back pain. Denies dizziness or weakness. States her first child was born at 27 weeks gestation due to placenta previa and is now 9 years old. Patient denies any recent rash, fever, chills, cough, shortness of breath, chest pain, nausea, vomiting, diarrhea, constipation, back pain, numbness, tingling, dizziness, weakness, hematuria, dysuria, urinary urgency, urinary frequency, headache, visual changes, or any other complaints. - Related Data Home Medications Medication Instructions Recorded Confirmed Dxl-Ktqa-Nxxze Acid 1 cap PO DAILY 06/21/20 06/21/20 [-U Capsule (formulary)] Allergies Allergy/AdvReac Type Severity Reaction Status Date / Time No Known Allergies Allergy Verified 06/21/20 20:32 Review of Systems ROS Statement: Those systems with pertinent positive or pertinent negative responses have been documented in the HPI. ROS Other: All systems not noted in ROS Statement are negative. Past Medical History Past Medical History: No Reported History Additional Past Medical History / Comment(s): GALLBLADDER DISORDER, blackouts History of Any Multi-Drug Resistant Organisms: None Reported Past Surgical History: Section, Cholecystectomy Additional Past Surgical History / Comment(s): brent removed, Past Anesthesia/Blood Transfusion Reactions: No Reported Reaction Past Psychological History: No Psychological Hx Reported Smoking Status: Never smoker Past Alcohol Use History: None Reported, Occasional Past Drug Use History: Marijuana - Past Family History Mother Family Medical History: No Reported History General Exam Limitations: no limitations General appearance: alert, in no apparent distress, other (This is a well- developed, well-nourished adult female patient in no acute distress. Vital signs upon presentation are temperature 98.4F, pulse 84, respirations 18, blood pressure 127/77, pulse ox 100% on room air.) Respiratory exam: Present: normal lung sounds bilaterally. Absent: respiratory distress, wheezes, rales, rhonchi, stridor Cardiovascular Exam: Present: regular rate, normal rhythm, normal heart sounds. Absent: systolic murmur, diastolic murmur, rubs, gallop, clicks GI/Abdominal exam: Present: soft, normal bowel sounds. Absent: distended, tenderness, guarding, rebound, rigid External exam: Present: normal external exam Speculum exam: Present: vaginal bleeding (Mild dark red. One medium size blood clot in the vaginal vault.), other (cervix is closed.) Neurological exam: Present: alert, oriented X3, CN II-XII intact Psychiatric exam: Present: normal affect, normal mood Skin exam: Present: warm, dry, intact, normal color. Absent: rash Course Vital Signs 06/21/20 18:44 Temperature 98.4 F Pulse Rate 84 Respiratory 18 Rate Blood Pressure 127/77 O2 Sat by Pulse 100 Oximetry Medical Decision Making - Medical Decision Making 30-year-old female patient presents to the emergency department today for evaluation of vaginal bleeding. She is 10 weeks 2 days with her second child. Labs reviewed and did reveal hCG level at 125,290. Urinalysis shows no signs of infection. Ultrasound was obtained and did show a viable intrauterine measuring 10 weeks 2 days with a tiny subchorionic hemorrhage measuring 0.5 cm. Pelvic examination did reveal a medium size clot in the vaginal vault with mild amount of dark red vaginal bleeding. Cervix was closed. Blood type is O positive will not require RhoGAM. We did discuss subchorionic hemorrhage vs threatened miscarriage. She'll be discharged to follow-up with her MOLD PRESS OPERATOR for recheck on Wednesday. Return parameters were discussed in detail. She verbalizes understanding and agrees with this plan. - Lab Data Result diagrams: 06/21/20 19:37 06/21/20 19:37 Lab Results 06/21/20 06/21/20 06/21/20 Range/Units 19:37 19:37 19:37 WBC 7.5 (3.8-10.6) k/uL RBC 4.05 (3.80-5.40) m/uL Hgb 12.3 (11.4-16.0) gm/dL Hct 35.3 (34.0-46.0) % MCV 87.3 (80.0-100.0) fL MCH 30.3 (25.0-35.0) pg MCHC 34.7 (31.0-37.0) g/dL RDW 12.6 (11.5-15.5) % Plt Count 223 (150-450) k/uL MPV 6.8 Neutrophils % 75 % Lymphocytes % 17 % Monocytes % 5 % Eosinophils % 2 % Basophils % 0 % Neutrophils # 5.6 (1.3-7.7) k/uL Lymphocytes # 1.3 (1.0-4.8) k/uL Monocytes # 0.3 (0-1.0) k/uL Eosinophils # 0.1 (0-0.7) k/uL Basophils # 0.0 (0-0.2) k/uL Sodium 135 L (137-145) mmol/L Potassium 3.6 (3.5-5.1) mmol/L Chloride 103 (98-107) mmol/L Carbon Dioxide 23 (22-30) mmol/L Anion Gap 9 mmol/L BUN 13 (7-17) mg/dL Creatinine 0.39 L (0.52-1.04) mg/dL Est GFR (CKD-EPI)AfAm >90 (>60 ml/min/1.73 sqM) Est GFR (CKD-EPI)NonAf >90 (>60 ml/min/1.73 sqM) Glucose 124 H (74-99) mg/dL Calcium 8.7 (8.4-10.2) mg/dL Total Bilirubin 0.3 (0.2-1.3) mg/dL AST 28 (14-36) U/L ALT 13 (4-34) U/L Alkaline Phosphatase 44 (38-126) U/L Total Protein 7.0 (6.3-8.2) g/dL Albumin 4.0 (3.5-5.0) g/dL HCG, Quant 363996.0 mIU/mL Urine Color Yellow Urine Appearance Clear (Clear) Urine pH 6.0 (5.0-8.0) Ur Specific [place] 1.032 (1.001-1.035) Urine Protein Trace H (Negative) Urine Glucose (UA) Negative (Negative) Urine Ketones 1+ H (Negative) Urine Blood Small H (Negative) Urine Nitrite Negative (Negative) Urine Bilirubin Negative (Negative) Urine Urobilinogen 2.0 (<2.0) mg/dL Ur Leukocyte Esterase Negative (Negative) Urine RBC 3 (0-5) /hpf Urine WBC 1 (0-5) /hpf Ur Squamous Epith Cells 1 (0-4) /hpf Urine Mucus Occasional H (None) /hpf Blood Type Blood Type Recheck Bld Type Recheck Status 06/21/20 Range/Units 19:37 WBC (3.8-10.6) k/uL RBC (3.80-5.40) m/uL Hgb (11.4-16.0) gm/dL Hct (34.0-46.0) % MCV (80.0-100.0) fL MCH (25.0-35.0) pg MCHC (31.0-37.0) g/dL RDW (11.5-15.5) % Plt Count (150-450) k/uL MPV Neutrophils % % Lymphocytes % % Monocytes % % Eosinophils % % Basophils % % Neutrophils # (1.3-7.7) k/uL Lymphocytes # (1.0-4.8) k/uL Monocytes # (0-1.0) k/uL Eosinophils # (0-0.7) k/uL Basophils # (0-0.2) k/uL Sodium (137-145) mmol/L Potassium (3.5-5.1) mmol/L Chloride (98-107) mmol/L Carbon Dioxide (22-30) mmol/L Anion Gap mmol/L BUN (7-17) mg/dL Creatinine (0.52-1.04) mg/dL Est GFR (CKD-EPI)AfAm (>60 ml/min/1.73 sqM) Est GFR (CKD-EPI)NonAf (>60 ml/min/1.73 sqM) Glucose (74-99) mg/dL Calcium (8.4-10.2) mg/dL Total Bilirubin (0.2-1.3) mg/dL AST (14-36) U/L ALT (4-34) U/L Alkaline Phosphatase (38-126) U/L Total Protein (6.3-8.2) g/dL Albumin (3.5-5.0) g/dL HCG, Quant mIU/mL Urine Color Urine Appearance (Clear) Urine pH (5.0-8.0) Ur Specific [place] (1.001-1.035) Urine Protein (Negative) Urine Glucose (UA) (Negative) Urine Ketones (Negative) Urine Blood (Negative) Urine Nitrite (Negative) Urine Bilirubin (Negative) Urine Urobilinogen (<2.0) mg/dL Ur Leukocyte Esterase (Negative) Urine RBC (0-5) /hpf Urine WBC (0-5) /hpf Ur Squamous Epith Cells (0-4) /hpf Urine Mucus (None) /hpf Blood Type O Positive Blood Type Recheck O Pos Bld Type Recheck Status No - Radiology Data Radiology results: report reviewed, image reviewed ultrasound was obtained. Report was reviewed in its entirety. Impression by Dr. Jones shows ultrasound gestational age is 10 weeks and 2 days. acute process seen. There is tiny subchorionic hemorrhage measuring 0.5 cm. Disposition Clinical Impression: Vaginal bleeding during , Subchorionic hemorrhage, Threatened miscar riage Disposition: HOME SELF-CARE Condition: Good Instructions (If sedation given, give patient instructions): Threatened M iscarriage (ED), Subchorionic Hemorrhage (ED) Additional Instructions: Pelvic rest until cleared by her MOLD PRESS OPERATOR, no sexual intercourse, do not insert anything into the vagina. Follow-up with your MOLD PRESS OPERATOR for recheck as soon as possible. Have repeat labs drawn in 2 days at [facility] lab. Return to the emergency department immediately for any new, worsening, or concerning symptoms. Is patient prescribed a controlled substance at d/c from ED?: No Referrals: Mauricio Emerson DO [Primary Care Provider] - 1-2 days Veronica August MD [STAFF PHYSICIAN] - 1-2 days Time of Disposition: 20:31
[2020-06-21 19:41] LABS: Basophils % (A) 0 %; Eosinophils # (A) 0.1 k/uL (0-0.7); Eosinophils % (A) 2 %; HCT 35.3 % (34.0-46.0); HGB 12.3 gm/dL (11.4-16.0); Lymphocytes # (A) 1.3 k/uL (1.0-4.8); Lymphocytes % (A) 17 %; MCH 30.3 pg (25.0-35.0); MCHC 34.7 g/dL (31.0-37.0); MCV 87.3 fL (80.0-100.0); Mean Platelet Volume 6.8; Monocytes # (A) 0.3 k/uL (0-1.0); Monocytes % (A) 5 %; Neutrophils # (A) 5.6 k/uL (1.3-7.7); Neutrophils % (A) 75 %; Platelet Count 223 k/uL (150-450); RBC 4.05 m/uL (3.80-5.40); RDW 12.6 % (11.5-15.5); WBC 7.5 k/uL (3.8-10.6)
[2020-06-21 19:51] LABS: ALT 13 U/L (4-34); AST 28 U/L (14-36); African American GFR (CKD) >90 (>60 ml/min/1.73 sqM); Alkaline Phosphatase 44 U/L (38-126); Anion Gap 9 mmol/L; Blood Urea Nitrogen 13 mg/dL (7-17); Calcium 8.7 mg/dL (8.4-10.2); Carbon Dioxide 23 mmol/L (22-30); Chloride 103 mmol/L (98-107); Glucose 124 mg/dL (74-99); Non-African American GFR(CKD) >90 (>60 ml/min/1.73 sqM); Potassium 3.6 mmol/L (3.5-5.1); Sodium 135 mmol/L (137-145); Total Bilirubin 0.3 mg/dL (0.2-1.3)
[2020-06-21 19:56] LABS: Appearance,Urine Clear (Clear); Bilirubin,Urine Negative (Negative); Blood,Urine Small (Negative); Color,Urine Yellow; Glucose,Urine (UA) Negative (Negative); Ketones,Urine 1+ (Negative); Leukocyte Esterase,Urine Negative (Negative); Mucus,Urine Occasional /hpf; Nitrite,Urine Negative (Negative); Protein,Urine Trace (Negative); RBC,Urine 3 /hpf (0-5); Specific Gravity,Urine 1.032 (1.001-1.035); Squamous Epithelial Cell,Urine 1 /hpf (0-4); WBC,Urine 1 /hpf (0-5)
--- NOTE | 2020-06-21 20:10 | US ---
EXAMINATION TYPE: Transabdominal DATE OF EXAM: 06/21/2020 7:56 PM COMPARISON: NONE CLINICAL HISTORY: pain. bleeding EXAM PERFORMED: Transabdominal (TA) EXAM MEASUREMENTS: GESTATIONAL AGE / DATING Physician Established: (10 weeks/2 days) EDC: 01/15/2021 Dates by Current Scan for: (10 weeks/2 days) EDC: 10/15/2020 MATERNAL ANATOMY Uterus: 10.2 x 6.1 x 8.4 cm Right Ovary: 3.5 x 2.2 x 2.4 cm Left Ovary: 3.4 x 2.8 x 1.9 cm Post CDS / Adnexa: wnl Presence of free fluid: no Presence of corpus luteal cyst: yes, left ovary measuring 1.8 cm Presence of subchorionic bleed: Yes, to the right of the gestational sac measuring 0.9 cm GESTATION / SURVEY CRL: 3.4cm (10 weeks/2 days) Heart Rate: 158 bpm Rhythm: Normal IUP: Viable IUP Date of LMP: Unsure Beta HcG (if available): Not available at this time Viable IUP, measurements consistent with dates IMPRESSION: The ultrasound gestational age is 10 weeks and 2 days. No complicating process seen.
[2020-06-21 20:58] VITALS: BP 129/79; PULSE 71; TEMP 98.1
== END 2020-06-21 20:57 | disposition home or self-care (01) ==
LOC: EC 18:43
DX: O20.0 Threatened abortion (principal); Z3A.10 10 weeks gestation of pregnancy; Z90.49 Acquired absence of other specified parts of digestive tract
CPT/HCPCS: 36415; 76801; 80053; 81001; 84702; 85025; 86900; 86901; 96360; 99284

== ENCOUNTER 2022-02-28 08:37 | Emergency (ER) | payer OTHER ==
[2022-02-28 08:49] VITALS: RESP 16
--- NOTE | 2022-02-28 08:50 | ED ---
Nausea/Vomiting/Diarrhea HPI - General Chief complaint: Nausea/Vomiting/Diarrhea Stated complaint: vomiting Time Seen by Provider: 02/28/22 08:49 Source: patient, RN notes reviewed Mode of arrival: ambulatory Limitations: no limitations - History of Present Illness Initial comments: Patient is a 31-year-old female presents to the emergency room with complaints of nausea and vomiting ongoing for the last 24 hours and this morning she began having diarrhea as well. She also reports that she had a blackout spell yesterday however these are common for her and have been evaluated by her primary care provider in the past. She denies any changes in the symptoms and does not feel lightheaded or dizzy at this time. Her last menstrual cycle was l ast week however she does not have a consistent contraceptive that she uses and is currently sexually active. She complains of mild abdominal cramping and discomfort but no severe abdominal pain. She denies any chest pain, shortness of breath, headache, fevers or chills. - Related Data Home Medications Medication Instructions Recorded Confirmed Zui-Vawe-Fuukf Acid 1 cap PO DAILY 06/21/20 06/21/20 [-U Capsule (formulary)] Previous Rx's Medication Instructions Recorded Ondansetron Odt [Zofran Odt] 4 mg PO Q8HR PRN 7 Days #21 tab 02/28/22 Allergies Allergy/AdvReac Type Severity Reaction Status Date / Time No Known Allergies Allergy Verified 02/28/22 08:39 Review of Systems ROS Statement: Those systems with pertinent positive or pertinent negative responses have been documented in the HPI. ROS Other: All systems not noted in ROS Statement are negative. Past Medical History Past Medical History: No Reported History Additional Past Medical History / Comment(s): GALLBLADDER DISORDER, blackouts History of Any Multi-Drug Resistant Organisms: None Reported Past Surgical History: Section, Cholecystectomy Additional Past Surgical History / Comment(s): brent removed, Past Anesthesia/Blood Transfusion Reactions: No Reported Reaction Past Psychological History: No Psychological Hx Reported Smoking Status: Never smoker Past Alcohol Use History: None Reported, Occasional Past Drug Use History: Marijuana - Past Family History Mother Family Medical History: No Reported History General Exam Limitations: no limitations General appearance: alert, in no apparent distress Head exam: Present: atraumatic, normocephalic, normal inspection Eye exam: Present: normal appearance, PERRL, EOMI. Absent: scleral icterus, conjunctival injection, periorbital swelling ENT exam: Present: normal exam, mucous membranes moist Neck exam: Present: normal inspection Respiratory exam: Present: normal lung sounds bilaterally. Absent: respiratory distress, wheezes, rales, rhonchi, stridor Cardiovascular Exam: Present: normal rhythm, tachycardia (Mild), normal heart sounds. Absent: systolic murmur, diastolic murmur, rubs, gallop, clicks GI/Abdominal exam: Present: soft, normal bowel sounds. Absent: distended, tenderness, guarding, rebound, rigid Rectal exam: Present: deferred Extremities exam: Present: normal inspection. Absent: pedal edema, joint swelling Back exam: Present: normal inspection Neurological exam: Present: alert, oriented X3, CN II-XII intact Psychiatric exam: Present: normal affect, normal mood Skin exam: Present: warm, dry, intact, normal color. Absent: rash Course Vital Signs 02/28/22 02/28/22 02/28/22 08:39 08:46 10:09 Temperature 97.4 F L 98.1 F 98.2 F Pulse Rate 112 H 100 68 Respiratory 18 16 16 Rate Blood Pressure 103/69 105/64 100/67 O2 Sat by Pulse 100 99 100 Oximetry Medical Decision Making - Medical Decision Making 31-year-old female presenting to the emergency department with complaints of nausea vomiting 24 hours and the start of diarrhea this morning as well. She denies any known exposure to influenza or COVID. She denies any known food contaminant ingestion. She denies any fevers or chills. No indication for diagnostic imaging at this time. Will check a urine for UTI along with . Will check COVID and influenza swabs as well. Denies severe nausea at this time will defer anti-emetics. Will give IV fluid bolus and monitor response. Covid and influenza swabs negative. Urine test negative. Urinalysis consistent with most menstrual cycle was negative for UTI. Symptoms improved after IV fluid liter bolus and Zofran will discharge home with good oral hydration encouraged and Zofran ODT as needed. Encourage follow-up with her primary care provider. Case discussed with Dr. Short - Lab Data Lab Results 02/28/22 02/28/22 02/28/22 Range/Units 08:53 08:53 09:38 Urine Color Yellow Urine Appearance Cloudy H (Clear) Urine pH 5.5 (5.0-8.0) Ur Specific [place] 1.028 (1.001-1.035) Urine Protein 1+ H (Negative) Urine Glucose (UA) Negative (Negative) Urine Ketones 4+ H (Negative) Urine Blood Trace H (Negative) Urine Nitrite Negative (Negative) Urine Bilirubin Negative (Negative) Urine Urobilinogen <2.0 (<2.0) mg/dL Ur Leukocyte Esterase Negative (Negative) Urine RBC 1 (0-5) /hpf Urine WBC 8 H (0-5) /hpf Ur Squamous Epith Cells 7 H (0-4) /hpf Urine Bacteria Rare H (None) /hpf Hyaline Casts 1 (0-2) /lpf Urine Mucus Rare H (None) /hpf Urine HCG, Qual (Not Detectd) Coronavirus (PCR) Not Detected (Not Detectd) Influenza Type A RNA Not Detected (Not Detectd) Influenza Type B (PCR) Not Detected (Not Detectd) 02/28/22 Range/Units 09:38 Urine Color Urine Appearance (Clear) Urine pH (5.0-8.0) Ur Specific [place] (1.001-1.035) Urine Protein (Negative) Urine Glucose (UA) (Negative) Urine Ketones (Negative) Urine Blood (Negative) Urine Nitrite (Negative) Urine Bilirubin (Negative) Urine Urobilinogen (<2.0) mg/dL Ur Leukocyte Esterase (Negative) Urine RBC (0-5) /hpf Urine WBC (0-5) /hpf Ur Squamous Epith Cells (0-4) /hpf Urine Bacteria (None) /hpf Hyaline Casts (0-2) /lpf Urine Mucus (None) /hpf Urine HCG, Qual Not Detected (Not Detectd) Coronavirus (PCR) (Not Detectd) Influenza Type A RNA (Not Detectd) Influenza Type B (PCR) (Not Detectd) Disposition Clinical Impression: Gastroenteritis Disposition: HOME SELF-CARE Instructions (If sedation given, give patient instructions): Acute Nausea and Vomiting (ED), Gastroenteritis (DC) Additional Instructions: Please continue good oral hydration continuing water and electrolyte drinks such as Gatorade. Utilize Zofran as needed for nausea and vomiting. Please follow-up with your primary care provider. Please return to the Emergency Department if symptoms worsen or any other concerns. Prescriptions: Ondansetron Odt [Zofran Odt] 4 mg PO Q8HR PRN 7 Days #21 tab PRN Reason: Nausea Is patient prescribed a controlled substance at d/c from ED?: No Referrals: Mauricio Emerson DO [Primary Care Provider] - 1-2 days Time of Disposition: 11:52
[2022-02-28] MEDS ORDERED: SODIUM CHLORIDE 0.9% 1,000 ML IV STA (08:53)
[2022-02-28 10:20] LABS: Appearance,Urine Cloudy (Clear); Bacteria,Urine Rare /hpf; Bilirubin,Urine Negative (Negative); Blood,Urine Trace (Negative); Color,Urine Yellow; Glucose,Urine (UA) Negative (Negative); Hyaline Casts,Urine 1 /lpf (0-2); Ketones,Urine 4+ (Negative); Leukocyte Esterase,Urine Negative (Negative); Mucus,Urine Rare /hpf; Nitrite,Urine Negative (Negative); PH, Urine 5.5 (5.0-8.0); Protein,Urine 1+ (Negative); RBC,Urine 1 /hpf (0-5); Specific Gravity,Urine 1.028 (1.001-1.035); Squamous Epithelial Cell,Urine 7 /hpf (0-4); Urobilinogen,Urine <2.0 mg/dL (<2.0); WBC,Urine 8 /hpf (0-5)
[2022-02-28] MEDS ORDERED: ONDANSETRON 4 MG/2 ML VIAL IVP STA (10:48)
[2022-02-28 12:11] VITALS: BP 102/60; PULSE 72
[2022-02-28 12:12] VITALS: TEMP 97.1
== END 2022-02-28 12:13 | disposition home or self-care (01) ==
LOC: EC 08:37
DX: K52.9 Noninfective gastroenteritis and colitis, unspecified (principal); Z20.822 Contact with and (suspected) exposure to COVID-19
CPT/HCPCS: 81001; 81025; 87502; 87635; 99284; 96374; 96361; J2405

== ENCOUNTER 2022-05-17 21:11 | Observation (INO) | payer OTHER ==
[2022-05-17] MEDS ORDERED: SODIUM CHLORIDE 0.9% 1,000 ML IV STA (21:33)
--- NOTE | 2022-05-17 21:42 | ED ---
General Adult HPI - General Chief complaint: Syncope Stated complaint: Dizziness Time Seen by Provider: 05/17/22 21:24 Source: patient, RN notes reviewed Mode of arrival: ambulatory Limitations: no limitations - History of Present Illness Initial comments: This is a pleasant 32-year-old female who is A1. Patient had a medically induced 2 weeks ago and continues to have vaginal bleeding. Patient has had problems with lightheadedness and fatigue. Patient states she stood up and felt lightheaded. Patient then passed out. No injury. Patient states she is prone to syncopal episodes. Patient states whenever she is sick or is going through stress she is prone to passing out. Patient does have a clotting disorder but is denying any chest pain or shortness of breath. No extremity swelling. Patient states she is bleeding heavier than a normal menses on a daily basis. Patient believes her symptomatology is related to blood loss. Patient states when she sits down to the bathroom she is passing large clots. Patient has history of MTHFR genetic mutation. Patient currently feels fatigued but is otherwise asymptomatic as I am speaking to her. No headache, no fever or chills, no changes in vision or hearing, no sore throat or difficulty with speech, no neck pain, no chest pain or shortness of breath, no abdominal pain, no nausea or vomiting, no changes in urination or bowel movements, no numbness or tingling, no extremity pain, no skin rashes or lesions. Past medical, surgical, social, and family history reviewed. - Related Data Home Medications Medication Instructions Recorded Confirmed [id number] Acid 1 cap PO DAILY 06/21/20 06/21/20 [-U Capsule (formulary)] Previous Rx's Medication Instructions Recorded Ondansetron Odt [Zofran Odt] 4 mg PO Q8HR PRN 7 Days #21 tab 02/28/22 Allergies Allergy/AdvReac Type Severity Reaction Status Date / Time No Known Allergies Allergy Verified 05/17/22 21:22 Review of Systems ROS Statement: Those systems with pertinent positive or pertinent negative responses have been documented in the HPI. ROS Other: All systems not noted in ROS Statement are negative. Past Medical History Past Medical History: No Reported History Additional Past Medical History / Comment(s): GALLBLADDER DISORDER, blackouts History of Any Multi-Drug Resistant Organisms: None Reported Past Surgical History: Section, Cholecystectomy Additional Past Surgical History / Comment(s): brent removed, Past Anesthesia/Blood Transfusion Reactions: No Reported Reaction Past Psychological History: No Psychological Hx Reported Smoking Status: Never smoker Past Alcohol Use History: None Reported, Occasional Past Drug Use History: Marijuana - Past Family History Mother Family Medical History: No Reported History General Exam - General Exam Comments Initial Comments: Vital signs stable, patient afebrile. Patient does not appear to be ill or toxic. Mildly pale appearance. Capillary refill less than 2 seconds. Moist mucous membranes. Limitations: no limitations General appearance: alert, in no apparent distress Head exam: Present: atraumatic, normocephalic, normal inspection Eye exam: Present: normal appearance, PERRL, EOMI. Absent: scleral icterus, conjunctival injection, periorbital swelling ENT exam: Present: normal exam, normal oropharynx, mucous membranes moist, normal external ear exam Neck exam: Present: normal inspection, full ROM. Absent: tenderness, meningismus, lymphadenopathy Respiratory exam: Present: normal lung sounds bilaterally. Absent: respiratory distress, wheezes, rales, rhonchi, stridor Cardiovascular Exam: Present: regular rate, normal rhythm, normal heart sounds. Absent: systolic murmur, diastolic murmur, rubs, gallop, clicks GI/Abdominal exam: Present: soft, normal bowel sounds. Absent: distended, tenderness, guarding, rebound, rigid Rectal exam: Present: normal inspection External exam: Present: normal external exam. Absent: erythema, swelling, lesions, lacerations, ecchymosis Speculum exam: Present: vaginal bleeding (Large clots noted in the vaginal vault.), other (Chaperoned by Lakeshia BROWNE). Absent: normal speculum exam, erythema, vaginal discharge, foreign body, tissue, laceration Extremities exam: Present: normal inspection, full ROM, normal capillary refill. Absent: tenderness, pedal edema, joint swelling, calf tenderness Back exam: Present: normal inspection Neurological exam: Present: alert, oriented X3, CN II-XII intact Psychiatric exam: Present: normal affect, normal mood Skin exam: Present: warm, dry, intact, normal color. Absent: rash Course Vital Signs 05/17/22 05/17/22 21:19 22:14 Temperature 97.9 F Pulse Rate 86 Pulse Rate [ 97 Sitting] Pulse Rate [ 103 H Standing] Pulse Rate [ 101 H Supine] Respiratory 18 16 Rate Blood Pressure 102/66 Blood Pressure 94/63 [Sitting] Blood Pressure 109/72 [Standing] Blood Pressure 101/54 [Supine] O2 Sat by Pulse 99 100 Oximetry - Reevaluation(s) Reevaluation #1: 05/17/22 22:34 Medical record is reviewed Symptoms are improved here in the emergency department Patient is informed of results and questions answered Patient in no distress - Consultations Consultation #1: Call placed for the on-call [employer] WORKER doctor Consultation #2: Case was discussed in detail with the on-call pvc loader, Dr. Pinon. He suggested 0.2 mg of Methergine IM and observation with repeat CBC. Nothing by mouth. EKG Findings - EKG Comments: EKG Findings:: EKG interpreted independently by me at 2205 and reviewed by the ED attending physician reveals sinus rhythm with a rate of 91, normal intervals, normal axis, normal QRS morphology. No comparison study Medical Decision Making - Medical Decision Making Was pt. sent in by a medical professional or institution? @ -no Did you speak to anyone other than the patient for history? @ -Patient, mother Did you review nursing and triage notes? @ -Agree Were old charts reviewed? @ -No Differential Diagnosis? @ -Differential diagnosis: Syncope, symptomatically anemia, failed medical , vaginal bleeding with retained products of conception. Is on appear to be consistent with cardiopulmonary disease or cardiogenic syncope. EKG interpreted by me (3pts min.)? @ -[none] X-rays interpreted by me (1pt min.)? @ -[Chest x-ray independently interpreted by me shows no evidence of acute path ology. Reviewed radiology interpretation.] CT interpreted by me (1pt min.)? @ -[none] U/S interpreted by me (1pt. min.)? @ -[none] What testing was considered but not performed? (CT, X-rays, U/S, labs)? Why? @ [TESTING considered was done] What meds were considered but not given? Why? @ -[none] Did you discuss the management of the patient with other professionals? @ -On-call pvc loader, ED attending physician Did you reconcile home meds? @ -Yes Was smoking cessation discussed for >3mins.? @ -Not applicable Was critical care preformed (if so, how long)? @ -[none] Were there social determinants of health that impacted care today? How? (Homelessness, low income, unemployed, alcoholism, drug addiction, transportation, low edu. Level, literacy, decrease access to med. care, group home, rehab)? @ -Not applicable Was there de-escalation of care discussed even if they declined? (Discuss DNR or withdrawal of care, Hospice)? @ -Not applicable What co-morbidities impacted this encounter? (DM, HTN, Smoking, COPD, CAD, Cancer, CVA, Hep., AIDS, mental health diagnosis, sleep apnea, morbid obesity)? @ -Coagulation disorder, previous history of PID, patient breast-feeding Was patient admitted / discharged? @ -[Pelvic ultrasound reveals no endometrial thickening, uterus is empty, no adnexal mass. I did independently interpreted this by myself. No evidence of acute pathology. Radiology report reviewed. Pelvic ultrasound shows no abnorma lity. Hemoglobin has dropped to 8.6. Patient had negative orthostatics. Normotensive. Heart rate is stable. The highest we have had is 103. Patient will be held in observation with repeat CBC in the morning. Patient concurs with this treatment plan. Patient admitted to the [employer] physician.] Undiagnosed new problem with uncertain prognosis? @ -Symptomatic anemia with vaginal bleeding, medical Drug Therapy requiring intensive monitoring for toxicity (Heparin, Nitro, Insulin, Cardizem)? @ -[none] Were any procedures done? @ -[none] Diagnosis/symptom? @ -Symptomatic anemia with vaginal bleeding, status post medical Acute, or Chronic, or Acute on Chronic? @ -Acute Uncomplicated (without systemic symptoms) or Complicated (systemic symptoms)? @ -Complicated Side effects of treatment? @ -[none] Exacerbation, Progression, or Severe Exacerbation] @ -[no] Poses a threat to life or bodily function? @ -Yes The case was discussed in detail with ED attending physician. Presentation, jeremiah cervantes, treatment plan discussed in detail. Cooler Man Dr. Piña - Lab Data Result diagrams: 05/17/22 22:11 05/17/22 22:11 Lab Results 05/17/22 05/17/22 05/17/22 Range/Units 22:11 22:11 22:11 WBC 6.9 (3.8-10.6) k/uL RBC 2.82 L (3.80-5.40) m/uL Hgb 8.6 L (11.4-16.0) gm/dL Hct 24.6 L (34.0-46.0) % MCV 87.4 (80.0-100.0) fL MCH 30.6 (25.0-35.0) pg MCHC 35.0 (31.0-37.0) g/dL RDW 13.3 (11.5-15.5) % Plt Count 322 (150-450) k/uL MPV 7.7 Neutrophils % 67 % Lymphocytes % 22 % Monocytes % 5 % Eosinophils % 2 % Basophils % 1 % Neutrophils # 4.6 (1.3-7.7) k/uL Lymphocytes # 1.5 (1.0-4.8) k/uL Monocytes # 0.4 (0-1.0) k/uL Eosinophils # 0.2 (0-0.7) k/uL Basophils # 0.1 (0-0.2) k/uL Sodium 140 (137-145) mmol/L Potassium 4.1 (3.5-5.1) mmol/L Chloride 111 H (98-107) mmol/L Carbon Dioxide 25 (22-30) mmol/L Anion Gap 4 mmol/L BUN 16 (7-17) mg/dL Creatinine 0.48 L (0.52-1.04) mg/dL Est GFR (CKD-EPI)AfAm >90 (>60 ml/min/1.73 sqM) Est GFR (CKD-EPI)NonAf >90 (>60 ml/min/1.73 sqM) Glucose 100 H (74-99) mg/dL Calcium 8.1 L (8.4-10.2) mg/dL Total Bilirubin 0.1 L (0.2-1.3) mg/dL AST 20 (14-36) U/L ALT 13 (4-34) U/L Alkaline Phosphatase 69 (38-126) U/L Total Protein 5.6 L (6.3-8.2) g/dL Albumin 3.4 L (3.5-5.0) g/dL HCG, Quant 2502.4 mIU/mL Blood Type O Positive Blood Type Recheck O Pos Bld Type Recheck Status No Antibody Screen NEGATIVE Spec Expiration Date 05/20/2022 - 1081 Disposition Clinical Impression: Vaginal bleeding, Symptomatic anemia, Syncope and collapse Narrative: Medically induced 2 weeks ago Disposition: ADMITTED IP TO THIS [facility] Condition: Fair Is patient prescribed a controlled substance at d/c from ED?: No Referrals: Mauricio Emerson DO [Primary Care Provider] - 1-2 days Time of Disposition: 23:47 Decision to Admit Reason: Admit from EC Decision Time: 23:47
--- NOTE | 2022-05-17 22:14 | US ---
EXAMINATION TYPE: Transabdominal DATE OF EXAM: 05/17/2022 10:01 PM COMPARISON: NONE CLINICAL HISTORY: Vaginal bleeding--medically induced 2 wks. Bleeding had medical 2 weeks ago. EXAM PERFORMED: Transabdominal (TA) EXAM MEASUREMENTS: MATERNAL ANATOMY Uterus: 6.7 x 4.3 x 6.5 cm Right Ovary: 3.0 x 2.0 x 2.4 cm Left Ovary: 2.4 x 1.8 x 1.7 cm Post CDS / Adnexa: wnl Presence of free fluid: no IMPRESSION: No endometrial thickening. Uterus is empty. No adnexal mass.
[2022-05-17 22:20] VITALS: RESP 16
[2022-05-17 22:31] LABS: Basophils # (A) 0.1 k/uL (0-0.2); Basophils % (A) 1 %; Eosinophils # (A) 0.2 k/uL (0-0.7); Eosinophils % (A) 2 %; HCT 24.6 % (34.0-46.0); HGB 8.6 gm/dL (11.4-16.0); Lymphocytes # (A) 1.5 k/uL (1.0-4.8); Lymphocytes % (A) 22 %; MCH 30.6 pg (25.0-35.0); MCV 87.4 fL (80.0-100.0); Mean Platelet Volume 7.7; Monocytes # (A) 0.4 k/uL (0-1.0); Monocytes % (A) 5 %; Neutrophils # (A) 4.6 k/uL (1.3-7.7); Neutrophils % (A) 67 %; Platelet Count 322 k/uL (150-450); RBC 2.82 m/uL (3.80-5.40); RDW 13.3 % (11.5-15.5); WBC 6.9 k/uL (3.8-10.6)
[2022-05-17 22:47] LABS: ALT 13 U/L (4-34); AST 20 U/L (14-36); African American GFR (CKD) >90 (>60 ml/min/1.73 sqM); Albumin 3.4 g/dL (3.5-5.0); Alkaline Phosphatase 69 U/L (38-126); Anion Gap 4 mmol/L; Blood Urea Nitrogen 16 mg/dL (7-17); Calcium 8.1 mg/dL (8.4-10.2); Carbon Dioxide 25 mmol/L (22-30); Chloride 111 mmol/L (98-107); Glucose 100 mg/dL (74-99); Non-African American GFR(CKD) >90 (>60 ml/min/1.73 sqM); Potassium 4.1 mmol/L (3.5-5.1); Sodium 140 mmol/L (137-145); Total Bilirubin 0.1 mg/dL (0.2-1.3); Total Protein 5.6 g/dL (6.3-8.2)
[2022-05-17 23:04] LABS: HCG,Quantitative Serum 2502.4 mIU/mL
--- NOTE | 2022-05-17 23:33 | XR ---
EXAMINATION TYPE: XR chest 1V DATE OF EXAM: 05/17/2022 COMPARISON: 07/02/2016 HISTORY: Syncope TECHNIQUE: Single view FINDINGS: Heart and mediastinum are normal. Lungs are clear. Diaphragm is normal. Bony thorax is inta ct. IMPRESSION: Normal chest. No change.
[2022-05-17] MEDS ORDERED: METHYLERGONOVINE 0.2 MG/ML 1 ML AMP IM ONE (23:45)
[2022-05-17] MEDS ORDERED: NALOXONE 0.4 MG/ML 1 ML VIAL IV PRN (23:47)
[2022-05-17] MEDS ORDERED: ONDANSETRON 4 MG/2 ML VIAL IVP PRN (23:47)
[2022-05-18] MEDS: SODIUM CHLORIDE 0.9% 1,000 ML IV SCH ×2 (00:27→10:40)
[2022-05-18 07:19] LABS: Basophils % (A) 1 %; Eosinophils # (A) 0.1 k/uL (0-0.7); Eosinophils % (A) 1 %; HCT 22.7 % (34.0-46.0); HGB 7.6 gm/dL (11.4-16.0); Hypochromasia Slight; Lymphocytes # (A) 1.5 k/uL (1.0-4.8); Lymphocytes % (A) 23 %; MCHC 33.3 g/dL (31.0-37.0); MCV 90.1 fL (80.0-100.0); Mean Platelet Volume 8.1; Monocytes # (A) 0.3 k/uL (0-1.0); Monocytes % (A) 4 %; Neutrophils # (A) 4.6 k/uL (1.3-7.7); Neutrophils % (A) 69 %; Platelet Count 240 k/uL (150-450); RBC 2.52 m/uL (3.80-5.40); RDW 13.2 % (11.5-15.5); WBC 6.6 k/uL (3.8-10.6)
[2022-05-18 07:38] VITALS: BP 90/50; PULSE 79; TEMP 98.2
--- NOTE | 2022-05-18 10:57 | P.HPOB ---
History of Present Illness H&P Date: 05/18/22 Chief Complaint: vaginal bleeding with anemia the patient is a 32-year-old 3 para 1102 who was approximate 7 weeks and underwent medical interruption of with Cytotec through her primary [employer]NAGER. She has a history of very difficult pregnancies with one 27 week emergency section followed by a term delivery by section after having had significant issues with labor throughout the . Given her difficulty anchoring pregnancies, she opted to interrupt as noted above. She has been bleeding for approximately 2 weeks since the medication was provided and found herself passing large clots last evening. She began to feel dizzy and actually did have a syncopal episode without injury. She presented to the emergency room where a significant amount of clot was found in the vagina with no ongoing active bleeding. She did have a hemoglobin of 8.6 which is significantly lower than a previous hemoglobin on record. Given her acute bleeding, decision was made to observe her overnight. Ultrasound demonstr ated the uterus to be empty with no evidence of retained products of conception. Obstetrical history: 3 para 1102 with 2 previous deliveries, one at 27 weeks, 1 at 38 weeks. Given her difficulties with caring pregnancies, she made a decision to have an elective interruption of which was done with medication with the story as listed in history of present illness. Blood type is O+. Gynecologic history: Unremarkable with no history of any infections to include STDs. Review of Systems review of systems is confined to history of present illness. Past Medical History Past Medical History: Blood Disorder Additional Past Medical History / Comment(s): GALLBLADDER DISORDER, blackouts, MTHFR disorder History of Any Multi-Drug Resistant Organisms: None Reported Past Surgical History: Section, Cholecystectomy Additional Past Surgical History / Comment(s): brent removed, first c section was classical incision for 27 delivery (2011), csection (2020) Past Anesthesia/Blood Transfusion Reactions: No Reported Reaction Past Psychological History: No Psychological Hx Reported Smoking Status: Never smoker Past Alcohol Use History: None Reported, Occasional Past Drug Use History: Marijuana - Past Family History Mother Family Medical History: No Reported History Medications and Allergies Home Medications Medication Instructions Recorded Confirmed Type No Known Home Medications 05/18/22 05/18/22 History Allergies Allergy/AdvReac Type Severity Reaction Status Date / Time No Known Allergies Allergy Verified 05/17/22 21:22 Exam Vital Signs Temp Pulse Pulse Pulse Pulse Resp BP 05/18/22 07:38 16 05/18/22 07:37 98.2 F 79 16 05/18/22 01:00 05/18/22 00:22 98.5 F 76 16 05/17/22 22:14 97 103 H 101 H 16 05/17/22 21:19 97.9 F 86 18 102/66 BP BP BP Pulse Ox 05/18/22 07:38 05/18/22 07:37 90/50 05/18/22 01:00 100 05/18/22 00:22 110/76 100 05/17/22 22:14 94/63 109/72 101/54 100 05/17/22 21:19 99 Intake and Output 05/17/22 05/18/22 05/18/22 22:59 06:59 14:59 Intake Total 100 Output Total 250 Balance -250 100 Intake: IV 100 Output: Urine 250 Other: # Voids 1 Weight 54.431 kg 54.431 kg in general, this is a thin white female in no acute distress. Her heart has a regular rhythm and rate without murmur. Her lungs clear to auscultation bilaterally in all morales. Her abdomen is nondistended, soft, nontender, without masses. Her extremities are without any cyanosis, clubbing, or edema and are nontender to palpation bilaterally. Digital cervical examination is deferred at this time as the patient is having minimal ongoing bleeding. Results Result Diagrams: 05/18/22 06:03 05/17/22 22:11 Abnormal Lab Results - Last 24 Hours (Table) 05/17/22 05/17/22 05/18/22 Range/Units 22:11 22:11 06:03 RBC 2.82 L 2.52 L (3.80-5.40) m/uL Hgb 8.6 L 7.6 L (11.4-16.0) gm/dL Hct 24.6 L 22.7 L (34.0-46.0) % Chloride 111 H (98-107) mmol/L Creatinine 0.48 L (0.52-1.04) mg/dL Glucose 100 H (74-99) mg/dL Calcium 8.1 L (8.4-10.2) mg/dL Total Bilirubin 0.1 L (0.2-1.3) mg/dL Total Protein 5.6 L (6.3-8.2) g/dL Albumin 3.4 L (3.5-5.0) g/dL Assessment and Plan (1) Symptomatic anemia Current Visit: Yes Status: Acute Code(s): D64.9 - ANEMIA, UNSPECIFIED SNOMED Code(s): 035122074 (2) Vaginal bleeding Current Visit: Yes Status: Acute Code(s): N93.9 - ABNORMAL UTERINE AND VAGINAL BLEEDING, UNSPECIFIED SNOMED Code(s): 043769618 Plan: the bleeding appears to be well controlled at this time and minimal. She is asymptomatic when up at this time though she does feel tired. Her diet will be advanced to regular and, assuming she tolerates it, she will be discharged home to follow-up in the office in 2 weeks' time. I have instructed to have nothing in the vagina for at least 2 weeks until she follows up.
--- NOTE | 2022-05-18 11:01 | P.DS ---
Providers Date of admission: 05/18/22 00:06 Expected date of discharge: 05/18/22 Attending physician: Erik Pinon Primary care physician: Mauricio Emerson - Discharge Diagnosis(es) (1) Symptomatic anemia Current Visit: Yes Status: Acute (2) Vaginal bleeding Current Visit: Yes Status: Acute Hospital Course: the patient is a 32-year-old 3 para 1102 admitted through the emergency room for observation secondary to acute vaginal bleeding following a medical interruption of starting 2 weeks ago. She had been passing large clots and actually had a syncopal episode last evening prompting her to present to the emergency department. Her hemoglobin had dropped to 8.6 from a previous draw that was above 10. Given the drop in hemoglobin and her syncopal episode as well as significant amount of clots removed at the time of examination in the emergency department, the decision was made to observe her overnight. She was admitted for observation and followed conservatively. She had minimal ongoing bleeding overnight and this morning is having minimal ongoing bleeding as well. Her hemoglobin this morning is 7.6 which is likely dilutional. She is asymptomatic when up and moving around and has no symptoms of orthostasis. She will have a trial of regular diet and, assuming she tolerates it be discharged home to follow-up in the office in 2 weeks' time. I will provide her with a prescription for Methergine 0.2 mg by mouth 3 times daily for the next 3 days. She is instructed to have nothing in the vagina for the next 2 weeks until follow-up. She was otherwise to call for any significantly increased bleeding or other symptoms of concern. Blood type is O+. Procedures: #1. 23 observation #2. IV hydration Patient Condition at Discharge: Stable Plan - Discharge Summary New Discharge Prescriptions: No Action No Known Home Medications Discharge Medication List No Known Home Medications 05/18/22 [History] Follow up Appointment(s)/Referral(s): Mauricio Emerson DO [Primary Care Provider] - 1-2 days
== END 2022-05-18 11:50 | disposition home or self-care (01) ==
LOC: EC 21:11 → 4FBP 05-18 00:06
PROVIDERS: ADMIT Obstetrics & Gynecology; ATTEND Obstetrics & Gynecology
DX: O72.1 Other immediate postpartum hemorrhage (principal); O90.81 Anemia of the puerperium; D64.9 Anemia, unspecified; O90.89 Other complications of the puerperium, not elsewhere classified; R55 Syncope and collapse
CPT/HCPCS: 96372; 96374; 99285; 36415; 93005; 86900; 86901; 80053; 85025 ×2; 86850; 84702; 71045; 76801; G0378; J2210; J2405

== ENCOUNTER 2022-05-21 16:13 | Inpatient (IN) | payer OTHER ==
--- NOTE | 2022-05-21 16:40 | ED ---
General Adult HPI - General Source: patient Mode of arrival: wheelchair Limitations: no limitations <Betsy Zavala - Last Filed: 05/21/22 16:41> <Svitlana Ferrer - Last Filed: 05/21/22 17:05> <WangGray Debbie - Last Filed: 05/21/22 20:51> - General Chief complaint: Vaginal Bleeding Stated complaint: Vaginal bleeding - History of Present Illness Initial comments: Patient is a 32 year old A1 female who presents to the emergency department with a chief complaint of vaginal bleeding. She had a medically induced on 05/[address] Pinon. She presented on due to heavy vaginal bleeding. Patient states at this time she received blood due to low hemoglobin and had a normal ultrasound. States her vaginal bleeding has been minimal until today when she noticed increased bleeding in the toilet while urinating. Patient reports multiple blood clots in the toilet. Feels lightheaded currently. She denies fever, chills, shortness of breath, chest pain, palpitations, abdominal pain, nausea, vomiting, blood in stool. (Betsy Zavala) I assumed care for patient at 7:00 PM. Patient is a 32-year-old presents to the ER for vaginal bleeding she was admitted for overnight on for vaginal bleeding she had a chemically induced earlier this month. Patient allegedly was admitted with stable findings she was discharged on the . She ports back to the emergency room for recurrence of bleeding. Patient states that couple hours prior to arrival she began having symptoms of feeling faint and passage of several months of clots. Labs and ultrasound was ordered prior to my care. Hemoglobin is 8.4. Her hemoglobin 3 days ago 7.6. Coag panel is unremarkable. Metabolic panel is normal. Ultrasound shows some enlargement of the cervical canal consistent with blood clot. Endometrium is measuring 0.9 cm appearing hypervascular. Patient was moved to trauma bay 2 after episode of syncope. Her blood pressure was slightly low and her heart rate was high to the 120s. Patient appears pale and dry at the bedside. Clinical concern for vaginal hemorrhage. Pelvic exam was performed at the bedside showing some slight oozing of mixed dark and bright blood. Vaginal canal is packed with Kerlix roll. Case is discussed in detail with Dr. Keating who requests patient be given tranexamic acid. Dr. Keating will come in to evaluate the patient at the bedside. Dr. Keating impression after evaluating the patient at 8:40 PM. She evaluated the patient. She does plan on taking patient for dilatation and curettage tonight. (Gray Piña) - Related Data Home Medications Medication Instructions Recorded Confirmed Methylergonovine Maleate 0.2 mg PO TID 05/21/22 05/21/22 Allergies Allergy/AdvReac Type Severity Reaction Status Date / Time No Known Allergies Allergy Verified 05/21/22 17:38 Review of Systems ROS Other: All systems not noted in ROS Statement are negative. <Betsy Zavala - Last Filed: 05/21/22 16:41> ROS Other: All systems not noted in ROS Statement are negative. <Svitlana Ferrer - Last Filed: 05/21/22 17:05> ROS Other: All systems not noted in ROS Statement are negative. <Gray Piña - Last Filed: 05/21/22 20:51> ROS Statement: Those systems with pertinent positive or pertinent negative responses have been documented in the HPI. Past Medical History Past Medical History: Blood Disorder Additional Past Medical History / Comment(s): GALLBLADDER DISORDER, blackouts, MTHFR disorder History of Any Multi-Drug Resistant Organisms: None Reported Past Surgical History: Section, Cholecystectomy Additional Past Surgical History / Comment(s): brent removed, first c section was classical incision for 27 delivery (2011), csection (2020) Past Anesthesia/Blood Transfusion Reactions: No Reported Reaction Past Psychological History: No Psychological Hx Reported Smoking Status: Never smoker Past Alcohol Use History: None Reported, Occasional Past Drug Use History: Marijuana - Past Family History Mother Family Medical History: No Reported History <Betsy Zavala - Last Filed: 05/21/22 16:41> General Exam Limitations: no limitations <Betsy Zavala - Last Filed: 05/21/22 16:41> General appearance: alert, in no apparent distress, anxious, other (tearful while obtaining history ) Head exam: Present: atraumatic, normocephalic, normal inspection Eye exam: Present: normal appearance, PERRL, EOMI. Absent: scleral icterus, conjunctival injection, periorbital swelling ENT exam: Present: normal exam, mucous membranes moist Neck exam: Present: normal inspection. Absent: tenderness, meningismus, lymphadenopathy Respiratory exam: Present: normal lung sounds bilaterally. Absent: respiratory distress, wheezes, rales, rhonchi, stridor Cardiovascular Exam: Present: normal rhythm, tachycardia, normal heart sounds. Absent: systolic murmur, diastolic murmur, rubs, gallop, clicks GI/Abdominal exam: Present: soft, normal bowel sounds. Absent: distended, t enderness, guarding, rebound, rigid Extremities exam: Present: normal inspection, full ROM, normal capillary refill. Absent: tenderness, pedal edema, joint swelling, calf tenderness Back exam: Present: normal inspection Neurological exam: Present: alert, oriented X3, CN II-XII intact Psychiatric exam: Present: normal affect, normal mood Skin exam: Present: warm, dry, intact, normal color. Absent: rash <Svitlana Ferrer - Last Filed: 05/21/22 17:05> Course Vital Signs 05/21/22 05/21/22 05/21/22 16:18 17:16 18:57 Temperature 98.5 F Pulse Rate 132 H 129 H 117 H Respiratory 20 20 Rate Blood Pressure 121/82 102/61 107/56 O2 Sat by Pulse 100 100 Oximetry 05/21/22 05/21/22 05/21/22 19:26 19:35 19:44 Temperature 97.7 F 98.3 F Pulse Rate 103 H 106 H 103 H Respiratory 26 H 20 22 Rate Blood Pressure 107/59 102/54 103/56 O2 Sat by Pulse 100 100 Oximetry 05/21/22 05/21/22 20:04 20:11 Temperature 98.2 F Pulse Rate 110 H 98 Respiratory 20 20 Rate Blood Pressure 100/74 101/68 O2 Sat by Pulse 100 100 Oximetry Medical Decision Making - Lab Data Result diagrams: 05/21/22 16:45 05/21/22 16:45 <Gray Piña - Last Filed: 05/21/22 20:51> - Lab Data Lab Results 05/21/22 05/21/22 05/21/22 Range/Units 16:39 16:45 16:45 WBC 8.4 (3.8-10.6) k/uL RBC 2.75 L (3.80-5.40) m/uL Hgb 8.4 L (11.4-16.0) gm/dL Hct 24.5 L (34.0-46.0) % MCV 89.1 (80.0-100.0) fL MCH 30.4 (25.0-35.0) pg MCHC 34.2 (31.0-37.0) g/dL RDW 13.3 (11.5-15.5) % Plt Count 442 (150-450) k/uL MPV 7.4 Neutrophils % 66 % Lymphocytes % 25 % Monocytes % 5 % Eosinophils % 1 % Basophils % 1 % Neutrophils # 5.5 (1.3-7.7) k/uL Lymphocytes # 2.1 (1.0-4.8) k/uL Monocytes # 0.4 (0-1.0) k/uL Eosinophils # 0.1 (0-0.7) k/uL Basophils # 0.1 (0-0.2) k/uL Hypochromasia Slight Poikilocytosis Slight PT 10.2 (9.0-12.0) sec INR 1.0 (<1.2) APTT 24.4 (22.0-30.0) sec Sodium (137-145) mmol/L Potassium (3.5-5.1) mmol/L Chloride (98-107) mmol/L Carbon Dioxide (22-30) mmol/L Anion Gap mmol/L BUN (7-17) mg/dL Creatinine (0.52-1.04) mg/dL Est GFR (CKD-EPI)AfAm (>60 ml/min/1.73 sqM) Est GFR (CKD-EPI)NonAf (>60 ml/min/1.73 sqM) Glucose (74-99) mg/dL Calcium (8.4-10.2) mg/dL Total Bilirubin (0.2-1.3) mg/dL AST (14-36) U/L ALT (4-34) U/L Alkaline Phosphatase (38-126) U/L Total Protein (6.3-8.2) g/dL Albumin (3.5-5.0) g/dL HCG, Quant 1819.4 mIU/mL Urine Color Urine Appearance (Clear) Urine RBC (0-5) /hpf Urine WBC (0-5) /hpf Urine WBC Clumps (None) /hpf Urine HCG, Qual (Not Detectd) Blood Type Blood Type Recheck Bld Type Recheck Status Antibody Screen Crossmatch Spec Expiration Date 05/21/22 05/21/22 05/21/22 Range/Units 16:45 16:45 17:24 WBC (3.8-10.6) k/uL RBC (3.80-5.40) m/uL Hgb (11.4-16.0) gm/dL Hct (34.0-46.0) % MCV (80.0-100.0) fL MCH (25.0-35.0) pg MCHC (31.0-37.0) g/dL RDW (11.5-15.5) % Plt Count (150-450) k/uL MPV Neutrophils % % Lymphocytes % % Monocytes % % Eosinophils % % Basophils % % Neutrophils # (1.3-7.7) k/uL Lymphocytes # (1.0-4.8) k/uL Monocytes # (0-1.0) k/uL Eosinophils # (0-0.7) k/uL Basophils # (0-0.2) k/uL Hypochromasia Poikilocytosis PT (9.0-12.0) sec INR (<1.2) APTT (22.0-30.0) sec Sodium 138 (137-145) mmol/L Potassium 3.8 (3.5-5.1) mmol/L Chloride 106 (98-107) mmol/L Carbon Dioxide 24 (22-30) mmol/L Anion Gap 8 mmol/L BUN 8 (7-17) mg/dL Creatinine 0.50 L (0.52-1.04) mg/dL Est GFR (CKD-EPI)AfAm >90 (>60 ml/min/1.73 sqM) Est GFR (CKD-EPI)NonAf >90 (>60 ml/min/1.73 sqM) Glucose 149 H (74-99) mg/dL Calcium 8.4 (8.4-10.2) mg/dL Total Bilirubin 0.3 (0.2-1.3) mg/dL AST 24 (14-36) U/L ALT 16 (4-34) U/L Alkaline Phosphatase 68 (38-126) U/L Total Protein 6.6 (6.3-8.2) g/dL Albumin 4.2 (3.5-5.0) g/dL HCG, Quant mIU/mL Urine Color Red Urine Appearance Bloody H (Clear) Urine RBC >182 H (0-5) /hpf Urine WBC >182 H (0-5) /hpf Urine WBC Clumps Many H (None) /hpf Urine HCG, Qual (Not Detectd) Blood Type O Positive Blood Type Recheck O Pos Bld Type Recheck Status No Antibody Screen NEGATIVE Crossmatch See Detail Spec Expiration Date 05/24/2022 - 234405/21/22 Range/Units 17:24 WBC (3.8-10.6) k/uL RBC (3.80-5.40) m/uL Hgb (11.4-16.0) gm/dL Hct (34.0-46.0) % MCV (80.0-100.0) fL MCH (25.0-35.0) pg MCHC (31.0-37.0) g/dL RDW (11.5-15.5) % Plt Count (150-450) k/uL MPV Neutrophils % % Lymphocytes % % Monocytes % % Eosinophils % % Basophils % % Neutrophils # (1.3-7.7) k/uL Lymphocytes # (1.0-4.8) k/uL Monocytes # (0-1.0) k/uL Eosinophils # (0-0.7) k/uL Basophils # (0-0.2) k/uL Hypochromasia Poikilocytosis PT (9.0-12.0) sec INR (<1.2) APTT (22.0-30.0) sec Sodium (137-145) mmol/L Potassium (3.5-5.1) mmol/L Chloride (98-107) mmol/L Carbon Dioxide (22-30) mmol/L Anion Gap mmol/L BUN (7-17) mg/dL Creatinine (0.52-1.04) mg/dL Est GFR (CKD-EPI)AfAm (>60 ml/min/1.73 sqM) Est GFR (CKD-EPI)NonAf (>60 ml/min/1.73 sqM) Glucose (74-99) mg/dL Calcium (8.4-10.2) mg/dL Total Bilirubin (0.2-1.3) mg/dL AST (14-36) U/L ALT (4-34) U/L Alkaline Phosphatase (38-126) U/L Total Protein (6.3-8.2) g/dL Albumin (3.5-5.0) g/dL HCG, Quant mIU/mL Urine Color Urine Appearance (Clear) Urine RBC (0-5) /hpf Urine WBC (0-5) /hpf Urine WBC Clumps (None) /hpf Urine HCG, Qual Detected (Not Detectd) Blood Type Blood Type Recheck Bld Type Recheck Status Antibody Screen Crossmatch Spec Expiration Date Disposition <Betsy Zavala - Last Filed: 05/21/22 16:41> <Svitlana Ferrer - Last Filed: 05/21/22 17:05> Decision Time: 20:51 <Gray Piña - Last Filed: 05/21/22 20:51> Clinical Impression: Vaginal hemorrhage Disposition: ADMITTED IP TO THIS [facility] Condition: Serious Referrals: Mauricio Emerson DO [Primary Care Provider] - 1-2 days
[2022-05-21] MEDS ORDERED: SODIUM CHLORIDE 0.9% 1,000 ML IV ONE ×2 (16:52→23:24)
[2022-05-21 17:34] LABS: Basophils # (A) 0.1 k/uL (0-0.2); Basophils % (A) 1 %; Eosinophils # (A) 0.1 k/uL (0-0.7); Eosinophils % (A) 1 %; HCT 24.5 % (34.0-46.0); HGB 8.4 gm/dL (11.4-16.0); Hypochromasia Slight; Lymphocytes # (A) 2.1 k/uL (1.0-4.8); Lymphocytes % (A) 25 %; MCH 30.4 pg (25.0-35.0); MCHC 34.2 g/dL (31.0-37.0); MCV 89.1 fL (80.0-100.0); Mean Platelet Volume 7.4; Monocytes # (A) 0.4 k/uL (0-1.0); Monocytes % (A) 5 %; Neutrophils # (A) 5.5 k/uL (1.3-7.7); Neutrophils % (A) 66 %; Platelet Count 442 k/uL (150-450); Poikilocytosis Slight; RBC 2.75 m/uL (3.80-5.40); RDW 13.3 % (11.5-15.5); WBC 8.4 k/uL (3.8-10.6)
[2022-05-21 17:42] LABS: Partial Thromboplastin Time 24.4 sec (22.0-30.0); Prothrombin Time 10.2 sec (9.0-12.0)
[2022-05-21 17:45] LABS: Color,Urine Red; RBC,Urine >182 /hpf (0-5); WBC,Urine >182 /hpf (0-5)
[2022-05-21 17:46] LABS: Appearance,Urine Bloody (Clear)
--- NOTE | 2022-05-21 18:04 | US ---
EXAMINATION TYPE: Transabdominal DATE OF EXAM: 05/21/2022 5:54 PM COMPARISON: 05/17/22 CLINICAL HISTORY: vaginal bleeding, s/p medical 05/01. vaginal bleeding with "big clots". Med ical induced on 05/01/22 EXAM PERFORMED: Transvaginal (TV) and Transabdominal (TA) EXAM MEASUREMENTS: GESTATIONAL AGE / DATING Dates by First Scan: No IUP vis. Dates by Current Scan for: No IUP seen at this time MATERNAL ANATOMY Uterus: 8.3 x 5.5 x 3.8cm Right Ovary: 2.9 x 2.4 x 2.1cm Left Ovary: 3.5 x 3.3 x 1.7cm Post CDS / Adnexa: wnl Presence of free fluid: No Presence of corpus luteal cyst: No GESTATION / SURVEY CRL: Not vis ) Beta HcG (if available): Pending Endometrium is measuring 0.9cm and appears hypervascular. Cervix appears heterogeneous and there is b lood seen in it. IMPRESSION: There is some enlargement of the cervical canal consistent with blood clot. No intrauterine gestation al sac. No adnexal mass. No free fluid.
[2022-05-21 18:10] LABS: ALT 16 U/L (4-34); AST 24 U/L (14-36); African American GFR (CKD) >90 (>60 ml/min/1.73 sqM); Albumin 4.2 g/dL (3.5-5.0); Alkaline Phosphatase 68 U/L (38-126); Anion Gap 8 mmol/L; Blood Urea Nitrogen 8 mg/dL (7-17); Calcium 8.4 mg/dL (8.4-10.2); Carbon Dioxide 24 mmol/L (22-30); Chloride 106 mmol/L (98-107); Glucose 149 mg/dL (74-99); Non-African American GFR(CKD) >90 (>60 ml/min/1.73 sqM); Potassium 3.8 mmol/L (3.5-5.1); Sodium 138 mmol/L (137-145); Total Bilirubin 0.3 mg/dL (0.2-1.3); Total Protein 6.6 g/dL (6.3-8.2)
[2022-05-21] MEDS ORDERED: TRANEXAMIC ACID IN NACL,ISO-OS 100 ML IVPB ONE (19:15)
[2022-05-21] MEDS ORDERED: ONDANSETRON 4 MG/2 ML VIAL IVP STA ×2 (19:51)
[2022-05-21] MEDS ORDERED: NALOXONE 0.4 MG/ML 1 ML VIAL IV PRN (20:40)
[2022-05-21] MEDS ORDERED: METOCLOPRAMIDE 5 MG/ML 2 ML VIAL IVP STA (20:47)
[2022-05-21 21:02] LABS: Basophils % (A) 0 %; Eosinophils % (A) 1 %; Hypochromasia Slight; Lymphocytes # (A) 1.4 k/uL (1.0-4.8); Lymphocytes % (A) 21 %; MCH 29.7 pg (25.0-35.0); MCHC 34.3 g/dL (31.0-37.0); MCV 86.5 fL (80.0-100.0); Mean Platelet Volume 7.8; Monocytes # (A) 0.3 k/uL (0-1.0); Monocytes % (A) 4 %; Neutrophils # (A) 5.1 k/uL (1.3-7.7); Neutrophils % (A) 73 %; Platelet Count 304 k/uL (150-450); Poikilocytosis Slight; RBC 2.09 m/uL (3.80-5.40); RDW 14.3 % (11.5-15.5)
[2022-05-21 21:04] LABS: HGB 6.2 gm/dL (11.4-16.0)
[2022-05-21] MEDS: SODIUM CHLORIDE 0.9% 1,000 ML IV SCH (21:27)
--- NOTE | 2022-05-21 21:32 | P.HPOB ---
History of Present Illness H&P Date: 05/21/22 Chief Complaint: Heavy vaginal bleeding, syncope This is a 32-year-old female 3 para 2 who underwent an induced termination of via Cytotec on May 01. She was approximately 7 weeks at that time. This was through an [employer]IC MANAGER down in the city. 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 She delivered her last child 15 months ago and is still breast-feeding. 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 She was admitted on May [address] Pinon after she had a syncopal episode at home and had been bleeding heavy. She was admitted overnight and observed. She did get 1 dose of Methergine IM and her bleeding did stop overnight. She felt better and was discharged home the next day with instructions to follow up with Dr. Pinon in the office in 2 weeks. She was also given a prescription for Methergine 0.2 mg 3 times a day for 3 days which she stated that she did not take because she was not bleeding at the time. Today she stated she started having cramping and started to bleed very heavy with large clots at approximately 3 PM. She then went to the emergency room where she has been vomiting and feeling diaphoretic and nauseated. Her pulse on arrival was approximately 120 with hypotension. She was started on fluids along with packed red blood cells and she was also given TXA. A packing was also placed by the ER doctor. Upon my arrival the patient still stated she felt very weak and dizzy. She was cramping quite a bit. I removed the packing and approximately a 6 cm blood clot. No further active bleeding was noted at that time. It did place a mother's pad underneath her and an approximately 20 minutes time it was still dry. Her beta hCG on 05/17/2022 was 2505 and today is 1819. Her pelvic ultrasound showed endometrial thickness of 0.9 cm and hypervascular. Cervical os appeared to be open with a blood clot. Obstetrical history: with history of 2 sections and current termination of . Gynecologic history: History of Trichomonas treated in the past. Review of Systems Constitutional: Reports lethargy, Reports weakness Eyes: denies blurred vision, denies pain Ears, nose, mouth and throat: Denies headache, Denies sore throat Cardiovascular: Denies chest pain, Denies shortness of breath Respiratory: Denies cough Gastrointestinal: Reports abdominal pain (Pelvic cramping), Reports nausea, Reports vomiting Genitourinary: Reports abnormal vaginal bleeding, Reports menorrhagia, Reports pelvic pain Musculoskeletal: Denies myalgias Integumentary: Denies pruritus, Denies rash Neurological: Reports weakness Psychiatric: Denies anxiety, Denies depression Endocrine: Reports fatigue Past Medical History Past Medical History: Blood Disorder Additional Past Medical History / Comment(s): GALLBLADDER DISORDER, blackouts, MTHFR disorder History of Any Multi-Drug Resistant Organisms: None Reported Past Surgical History: Section, Cholecystectomy Additional Past Surgical History / Comment(s): brent removed, first c section was classical incision for 27 delivery (2011), csection (2020) Past Anesthesia/Blood Transfusion Reactions: No Reported Reaction Past Psychological History: No Psychological Hx Reported Smoking Status: Never smoker Past Alcohol Use History: None Reported, Occasional Past Drug Use History: Marijuana - Past Family History Mother Family Medical History: No Reported History Medications and Allergies Home Medications Medication Instructions Recorded Confirmed Type Methylergonovine Maleate 0.2 mg PO TID 05/21/22 05/21/22 History Allergies Allergy/AdvReac Type Severity Reaction Status Date / Time No Known Allergies Allergy Verified 05/21/22 17:38 Exam Osteopathic Statement: *. No significant issues noted on an osteopathic structural exam other than those noted in the History and Physical/Consult. Vital Signs Temp Pulse Resp BP Pulse Ox 05/21/22 21:10 98.7 F 90 22 91/50 05/21/22 20:51 98.6 F 95 22 90/51 05/21/22 20:11 98 20 101/68 100 05/21/22 20:04 98.2 F 110 H 20 100/74 100 05/21/22 19:44 98.3 F 103 H 22 103/56 100 05/21/22 19:35 97.7 F 106 H 20 102/54 05/21/22 19:26 103 H 26 H 107/59 100 05/21/22 18:57 117 H 20 107/56 100 05/21/22 17:16 129 H 102/61 05/21/22 16:18 98.5 F 132 H 20 121/82 100 Intake and Output 05/21/22 05/21/22 05/21/22 06:59 14:59 22:59 Intake Total 277 Balance 277 Intake: Blood Product 277 Rc As-1 Unit 0 [id number] Rc Pheresis As-3 Unit 277 [id number] Other: Weight 54.431 kg Gen.: Thin-appearing female who appears lethargic and green in color and obviously does not feel well HEENT: Within normal limits Heart: Tachycardic Lungs: Clear to auscultation bilaterally Abdomen: Soft, mild tenderness suprapubically Speculum exam: Packing is removed and a large approximately 6 cm clot is removed. A wilson swab was used to swab the cervix and no active bleeding is noted after removing the large clot. Pelvic exam: Uterus is small, mid position, mildly tender with no adnexal masses palpated Extremities: Negative Homans Results Result Diagrams: 05/21/22 20:43 05/21/22 16:45 Abnormal Lab Results - Last 24 Hours (Table) 05/21/22 05/21/22 05/21/22 Range/Units 16:45 16:45 16:45 RBC 2.75 L (3.80-5.40) m/uL Hgb 8.4 L (11.4-16.0) gm/dL Hct 24.5 L (34.0-46.0) % Creatinine 0.50 L (0.52-1.04) mg/dL Glucose 149 H (74-99) mg/dL Urine Appearance (Clear) Urine RBC (0-5) /hpf Urine WBC (0-5) /hpf Urine WBC Clumps (None) /hpf Crossmatch See Detail 05/21/22 05/21/22 Range/Units 17:24 20:43 RBC 2.09 L (3.80-5.40) m/uL Hgb 6.2 L* D (11.4-16.0) gm/dL Hct 18.0 L* (34.0-46.0) % Creatinine (0.52-1.04) mg/dL Glucose (74-99) mg/dL Urine Appearance Bloody H (Clear) Urine RBC >182 H (0-5) /hpf Urine WBC >182 H (0-5) /hpf Urine WBC Clumps Many H (None) /hpf Crossmatch Assessment and Plan (1) Complication after medical termination of Current Visit: Yes Status: Acute Code(s): O04.80 - (INDUCED) TERMINATION OF WITH UNSP COMPLICATIONS SNOMED Code(s): 4036357710 (2) Symptomatic anemia Current Visit: No Status: Acute Code(s): D64.9 - ANEMIA, UNSPECIFIED SNOMED Code(s): 369905583 Plan: Admission for blood transfusion due to symptomatic anemia and suction dilation and curettage due to incomplete following medical termination of . Patient and her family are counseled regarding risks and benefits of suction dilation and curettage and she wishes to proceed. Risks of bleeding, infection, perforation of the uterus, are discussed in detail with the patient. She will be given antibiotics. She will be admitted after dilation and curettage for continued observation.
[2022-05-21] MEDS ORDERED: ONDANSETRON 4 MG/2 ML VIAL ONE (23:22)
[2022-05-21] MEDS ORDERED: fentaNYL (PF) 50 MCG/ML 2 ML AMP ONE (23:22)
[2022-05-21] MEDS ORDERED: SUCCINYLCHOLINE CHLORIDE 200 MG/10 ML VIAL IV ONE (23:22)
[2022-05-21] MEDS ORDERED: MIDAZOLAM 2 MG/2 ML VIAL ONE (23:22)
[2022-05-21] MEDS ORDERED: ETOMIDATE 2 MG/ML 10 ML VIAL ONE (23:22)
[2022-05-21] MEDS ORDERED: DEXAMETHASONE SOD PHOSPHATE 10 MG/ML 1 ML VIAL ONE (23:22)
--- NOTE | 2022-05-21 23:48 | P.OP ---
Date of Procedure: 05/21/22 Preoperative Diagnosis: Incomplete Blood loss anemia-symptomatic Postoperative Diagnosis: Same plus retained products of conception Procedure(s) Performed: Suction dilation and curettage Anesthesia: DIMITRY Surgeon: Joelle Keating Estimated Blood Loss (ml): 10 Pathology: other (Products of conception) Condition: stable Disposition: floor Indications for Procedure: This is a 32-year-old female 3 para 2 who recently underwent a medical termination of on May 01 and has had heavy bleeding off and on since that time. Please see history and physical for details of admission admission. In short, she presented to the emergency room with heavy vaginal b leeding and syncope. She was found to be anemic and was given 2 units of blood along with TXA. Her bleeding did stop however this is her second admission for heavy bleeding and therefore she will be taken for dilation and curettage to rule out retained products of conception. I have discussed the risks, benefits, and alternative therapies for the above- mentioned procedure and for both sedation/anesthesia as well as necessary blood products administration, if indicated, as they pertain to this patient. The patient has indicated her understanding and acceptance of the risks and procedures discussed. Operative Findings: Uterus is anteverted, sounded to 7-1/2 cm. A small amount of products of conception are noted. No adnexal masses are palpated. No blood is seen in the vaginal vault at the start of the surgery. Description of Procedure: Patient is taken to the operating room where she is placed in the dorsal lithotomy position. She is prepped and draped in the normal sterile fashion. Her bladder is drained with a catheter. Examination is performed under anesthesia. No active bleeding is noted. Uterus is found to be anteverted, small, with no adnexal masses palpated. A weighted speculum was placed in the patient's vagina and a right angle retractor is used to visualize the cervix. The anterior lip of the cervix is grasped with an Allis clamp. Uterus is sounded to 7-1/2 cm. Cervix is gently dilated with Pakc dilators. A 8 curved suction curette is then inserted into the endometrial cavity and suction curetting is performed with a small amount of products of conception obtained. Next sharp curet was introduced and sharp curettage was performed with minimal further tissue obtained. Suction curetting was performed one further time to remove any further tissue. The Allis clamp was then removed from the anterior lip of the cervix. No active bleeding is noted. All instruments are removed from the vagina. All sponge and needle counts are correct. The patient is then taken to recovery room in stable condition.
[2022-05-22] MEDS: SODIUM CHLORIDE 0.9% 1,000 ML IV SCH (05:38)
[2022-05-22 08:00] LABS: HCT 21.5 % (34.0-46.0); HGB 7.3 gm/dL (11.4-16.0); Hypochromasia Slight; MCH 29.7 pg (25.0-35.0); MCHC 34.1 g/dL (31.0-37.0); Mean Platelet Volume 8.2; Platelet Count 213 k/uL (150-450); Poikilocytosis Slight; RBC 2.47 m/uL (3.80-5.40); RDW 14.8 % (11.5-15.5); WBC 6.9 k/uL (3.8-10.6)
[2022-05-22 08:42] VITALS: BP 90/55; PULSE 87; RESP 16; TEMP 98.2
--- NOTE | 2022-05-22 09:06 | P.DS ---
Providers Date of admission: 05/21/22 20:40 Expected date of discharge: 05/22/22 Attending physician: Joelle Keating Primary care physician: Mauricio Emerson - Discharge Diagnosis(es) (1) Complication after medical termination of Current Visit: Yes Status: Acute (2) Symptomatic anemia Current Visit: No Status: Acute Hospital Course: This is a 32-year-old female 3 para 2 who presented with heavy vaginal bleeding and symptomatic anemia. She was given 2 units of packed red blood cells and TXA in the ER. Her bleeding did slow and she was taken for suction dilation and curettage. There was some tissue noted on dilation and curettage that was sent to pathology. Her bleeding has been minimal since that time and she denies any dizziness or shortness of breath. She feels much better today. Her hemoglobin did drop as low as 6.2 prior to her second unit and is now 7.3. She would like to just take iron and not take any more blood at this time. Procedures: Suction dilation and curettage on 05/21/2022 Patient Condition at Discharge: Serious Plan - Discharge Summary Discharge Rx Participant: No New Discharge Prescriptions: Discontinued RX: Methylergonovine Maleate 0.2 mg PO TID Follow up Appointment(s)/Referral(s): Mauricio Emerson DO [Primary Care Provider] - 1-2 days Joelle Keating DO [Doctor of Osteopathic Medicine] - 10 Days Activity/Diet/Wound Care/Special Instructions: Activity as tolerated. Diet as tolerated. No intercourse for 1-2 weeks. Call the office if heavy bleeding, fevers, increasing pain, or any other concerns. Follow-up in the office in 1-2 weeks for postoperative check. Discharge Disposition: HOME SELF-CARE
[2022-05-25 12:43] LABS: C. trachomatis,PCR Equivocal (Neg,Equiv); Chlamydia trachomatis Source Urine
== END 2022-05-22 11:10 | disposition home or self-care (01) | DRG 770 ==
LOC: EC 16:13 → 5NMEDONC 20:40 → 3SCARD 21:09 → 4FBP 05-22 08:20
PROVIDERS: ADMIT Obstetrics & Gynecology; ATTEND Obstetrics & Gynecology
PROC: 2Y44X5Z Packing of Female Genital Tract using Packing Material (ICD-10-PCS; 2022-05-21)
PROC: 10D17ZZ Extraction of Products of Conception, Retained, Via Natural or Artificial Opening (ICD-10-PCS; principal; 2022-05-21 21:05)
PROC: 30233N1 Transfusion of Nonautologous Red Blood Cells into Peripheral Vein, Percutaneous Approach (ICD-10-PCS; principal; 2022-05-21 21:05)
DX: O04.6 Delayed or excessive hemorrhage following (induced) termination of pregnancy (principal); E72.12 Methylenetetrahydrofolate reductase deficiency; I95.9 Hypotension, unspecified; D50.0 Iron deficiency anemia secondary to blood loss (chronic); Z98.891 History of uterine scar from previous surgery; Z28.310 Unvaccinated for COVID-19
CPT/HCPCS: 36415; 76801; 76817; 80053; 81025; 84702; 85025; 85027; 85610; 85730; 86850; 86900; 86901; 86920; 87086; 87491; 88305; 96361; 96374; 96375; 96376; 99285